=== PATIENT | female | born 1950 | race Caucasian/White ===

== ENCOUNTER → 2023-07-22 13:38 | Outpatient (REF) | payer OTHER, SELFPAY | LOC: RAD 13:38 | PROVIDERS: ATTENDING PHYSICIAN Internal Medicine Critical Care Medicine; FAMILY PHYSICIAN Family Medicine | DX: R91.1 Solitary pulmonary nodule (principal) | CPT/HCPCS: 71250 ==

== ENCOUNTER 2023-07-29 06:29 | Day surgery (SDC) | payer OTHER, SELFPAY ==
[2023-07-26 07:42] VITALS: BMI 30.5
[2023-07-26 09:12] LABS: Hematocrit 36.1 % (37.0-47.0); Hemoglobin 11.5 g/dL (12.0-16.0); Mean Corp Hgb Conc. 31.9 g/dL (33.0-37.0); Mean Corpuscular Hgb 29.5 pg (27.0-31.0); Mean Corpuscular Volume 92.6 fL (81.0-99.0); Mean Platelet Volume 10.4 fL (7.4-10.4); Platelet Count 338 10^3/uL (130-400); Red Cell Dist. Width 12.9 % (11.5-14.5); White Blood Cell Count 7.5 10^3/uL (4.8-10.8)
[2023-07-26 09:24] LABS: INR 0.98; PT 12.8 Sec (11.4-14.6)
[2023-07-26 09:25] LABS: APTT 25.7 Sec (23.4-35.0)
[2023-07-26 09:41] LABS: Blood Urea Nitrogen 24 mg/dl (7-17); Calcium 9.4 mg/dl (8.4-10.2); Carbon Dioxide 25 mmol/L (22-30); Chloride 105 mmol/L (98-107); Estimated Creatinine Clearance 69 ml/min; Glucose 101 mg/dl (70-99); Potassium 4.9 mmol/L (3.5-5.1); Sodium 140 mmol/L (135-145); eGFR > 60.00
[2023-07-29] VITALS (9 sets, daily range): BP systolic 110–148; BP diastolic 54–93; BMI 28.7
== END 2023-07-29 13:05 | disposition home or self-care (01) ==
LOC: GI 06:29
PROVIDERS: ATTENDING PHYSICIAN Internal Medicine Critical Care Medicine; FAMILY PHYSICIAN Family Medicine
DX: C34.32 Malignant neoplasm of lower lobe, left bronchus or lung (principal); R91.1 Solitary pulmonary nodule; R91.8 Other nonspecific abnormal finding of lung field
CPT/HCPCS: 31629; 31645; 31623; 31624; 31627; 31654; 88172; 88173; 88305; 36415; 71045; 76000; 80048; 85027; 85610; 85730; 88112; 88177; 88333; 88341; 88342; 93005; 94640; C1887

== ENCOUNTER → 2023-08-15 16:38 | Outpatient (REF) | payer OTHER, SELFPAY | LOC: MRI 3T 16:38 | PROVIDERS: ATTENDING PHYSICIAN Internal Medicine Critical Care Medicine; FAMILY PHYSICIAN Family Medicine | DX: C34.32 Malignant neoplasm of lower lobe, left bronchus or lung (principal) | CPT/HCPCS: 70553; A9575 ==

== ENCOUNTER → 2023-12-28 09:33 | Outpatient (REF) | payer OTHER, SELFPAY | LOC: RAD 09:33 | PROVIDERS: ATTENDING PHYSICIAN Radiology Radiation Oncology; FAMILY PHYSICIAN Family Medicine | DX: C34.32 Malignant neoplasm of lower lobe, left bronchus or lung (principal) | CPT/HCPCS: 71250 ==

== ENCOUNTER 2024-03-10 03:52 | Inpatient (IN) | payer OTHER, SELFPAY ==
[2024-03-10] VITALS (18 sets, daily range): BP systolic 98–156; BP diastolic 44–85; BMI 29.3; BMI 28.2
[2024-03-10 00:47] LABS: Troponin I < 0.012 ng/ml
[2024-03-10 00:49] LABS: % Basophils 0.2 % (0-2); % Eosinophils 0.8 % (0-6); % Immature Granulocytes 1.7 % (0-0.5); % Lymphocytes 5.1 % (20.5-51.1); % Monocytes 6.9 % (1.7-9.3); % Neutrophils 85.3 % (42.2-75.2); Absolute Eosinophils 0.1 10^3/uL (0-0.7); Absolute Immature Granulocytes 0.2 10^3/uL (0-0.05); Absolute Lymphocytes 0.7 10^3/uL (1.2-3.4); Hematocrit 34.9 % (37.0-47.0); Hemoglobin 11.6 g/dL (12.0-16.0); Mean Corp Hgb Conc. 33.2 g/dL (33.0-37.0); Mean Corpuscular Hgb 29.2 pg (27.0-31.0); Mean Corpuscular Volume 87.9 fL (81.0-99.0); Mean Platelet Volume 10.1 fL (7.4-10.4); Nucleated Red Blood Cells % 0 %; Platelet Count 296 10^3/uL (130-400); Red Blood Cell Count 3.97 10^6/uL (4.20-5.40)
[2024-03-10 00:51] LABS: ALT (SGPT) 602 U/L (0-35); AST (SGOT) 592 U/L (14-36); Albumin 3.8 g/dl (3.5-5.0); Alkaline Phosphatase 361 U/L (38-126); Blood Urea Nitrogen 25 mg/dl (7-17); Carbon Dioxide 22 mmol/L (22-30); Chloride 106 mmol/L (98-107); Estimated Creatinine Clearance 54 ml/min; Glucose 102 mg/dl (70-99); Sodium 141 mmol/L (135-145); Total Bilirubin 2.4 mg/dl (0.2-1.3); Total Protein 6.7 g/dl (6.3-8.2); eGFR > 60.00
--- NOTE | 2024-03-10 01:18 | ED.GENMED ---
History of Present Illness
General
Chief Complaint: Chest Pain
Source: patient
Exam Limitations: none
Time Seen by Provider: 03/10/24 01:09
History of Present Illness
History of Present Illness:
See MDM
Past History
Past History
ED Past Medical History: HTN and Psychiatric (Depression)
Social History
Tobacco: Smoker
Alcohol: Occasional
Drug: None
Personal: Single
Living: alone
Phy Exam
Physical Exam
Physical Exam:
See MDM
Scores
Heart Score for Chest Pain Patients
STEMI patient?: Not applicable
Course
Orders/Labs/Results
Orders:
Orders
03/10/24 00:06
Electrocardiogram (*1) Urgent
Reason for Study: Chest Pain
EKG- Treatment ONCE
03/10/24 00:14
Complete Blood Count/With Diff Urgent
Comprehensive Metabolic Panel Urgent
Lipase Urgent
Comment: ADD ON
Troponin I Urgent
03/10/24 00:58
Add On- LAB Urgent
Tests Added?: lipase
US Abdomen Complete/Upper Urgent
Comment:
Reason For Exam: acute epigastric pain, elevated LFT's
03/10/24 01:02
Lactic Acid Urgent
03/10/24 01:17
Ketorolac [Toradol] 30 mg IV NOW STA
03/10/24 02:41
Piperacillin/Tazo 3.375 Gram [Zosyn] 3.375 gram in 50 ml IV NOW
Abnormal Lab Results
03/10/24
00:14
WBC 14.0 H 10^3/uL
(4.8-10.8)
RBC 3.97 L 10^6/uL
(4.20-5.40)
Hgb 11.6 L g/dL
(12.0-16.0)
Hct 34.9 L %
(37.0-47.0)
Abs Immat Gran (auto) 0.2 H 10^3/uL
(0-0.05)
Absolute Neuts (auto) 12.0 H 10^3/uL
(1.4-6.5)
Absolute Lymphs (auto) 0.7 L 10^3/uL
(1.2-3.4)
Absolute Monos (auto) 1.0 H 10^3/uL
(0.1-0.6)
Immature Gran % 1.7 H %
(0-0.5)
Neutrophils % 85.3 H %
(42.2-75.2)
Lymphocytes % 5.1 L %
(20.5-51.1)
BUN 25 H mg/dl
(7-17)
Glucose 102 H mg/dl
(70-99)
Calcium 8.0 L mg/dl
(8.4-10.2)
Total Bilirubin 2.4 H mg/dl
(0.2-1.3)
AST 592 H* U/L
(14-36)
ALT 602 H* U/L
(0-35)
Alkaline Phosphatase 361 H U/L
(38-126)
Lipase > 4000 H* U/L
(23-300)
03/10/24 00:14
03/10/24 00:14
Vital Signs
Initial and Last Documented VS:
Initial Vital Signs
BP
117/44
03/10/24 00:05
Last Documented Vital Signs
Temp Pulse Resp BP Pulse Ox
97.6 F 66 20 98/58 99
03/10/24 00:06 03/10/24 02:30 03/10/24 02:30 03/10/24 01:00 03/10/24 02:30
MDM/Problems Addressed
Differential Diagnosis Includes:
HPI and MDM Narrative:
73-year-old female presenting for evaluation of of abdominal pain soon after eating. Blood work was done prior to my evaluation which shows significant elevation of LFTs. She states she has a family history of gallbladder disease. She initially
thought it could be heart related so she took aspirin. EKG performed by EMS showed no ischemic changes. Troponin negative. Will obtain ultrasound with concerns for acute calculus cholecystitis and possibly choledocholithiasis
Physical exam
General: Mildly uncomfortable
HEENT: protecting airway. Dry mucous membrane
Neck: appears supple
CV: No evidence of cyanosis
Resp: No accessory muscle use
Abd: Non-distended. Point tenderness to right upper quadrant
Extremities: No deformities
Neuro: alert
Psych: Normal affect
Skin: Intact
Problems Addressed including Acute and Chronic Conditions affecting care:
1. Right upper quadrant pain
Acuity: acute
Prognosis: stable
Details: LFTs elevated. Will obtain ultrasound to rule out acute calculus cholecystitis, choledocholithiasis or possibly gallstone pancreatitis
Updates
Ultrasound consistent with likely acute calculus cholecystitis but lipase is greater than 4000. Will start antibiotics admit as gallstone pancreatitis
Differential Diagnosis (but not limited to): Acute calculus cholecystitis, choledocholithiasis, acute gallstone pancreatitis
Testing considered: CT abdomen/pelvis
Drug therapy (if applicable): OTC meds, please see d/c instruction regarding Rx drugs
Amount and/or Complexity of Data Reviewed
Clinical info obtained from: Patient
External data reviewed: N/A
Labs I independently reviewed (but not limited to): Elevated LFTs
Radiology: Ultrasound report reviewed
Pulse Ox: not hypoxic
EKG independently reviewed: N/A
Hearing Therapy Teacher: N/A
Critical Care: N/A
Risk of Complication:
Social Determinants of health: Good social support
Discussed with other providers: Hospitalist
Escalation of Care includes Admit/Obs: Given the concern for gallstone pancreatitis and the LFT elevations, will start antibiotics and admit
Occasional wrong word or 'sound a like' substitutions may have occurred due to the inherent limitations of voice recognition software. Read the chart carefully and recognize, using context, where substitutions have occurred.
*Critical Care Note
Total Time (30-74mins, 75-104mins- exclusive of procedures): Not Applicable
ED Attending Note
-
Portions of this chart may have been created with voice recognition software.� Occasional wrong word or��sound alike� substitutions may have occurred due to the inherent limitations of voice recognition software.
Discharge Plan
Departure
Patient Disposition: Admit
Date of Disposition: 03/10/24
Time of Disposition: 02:44
Admit to: Med/Surg
Presentation/result/management discussed w/ accepting MD/DO: Hospitalist
Discharge Problem:
Pancreatitis, gallstone
Prescriptions:
No Action
alprazolam 0.25 MG tablet
0.25 mg PO HS
albuterol sulfate 1 PUFF HFA aerosol inhaler
2 puff inhalation R Q4HPRN PRN (Reason: shortness of breath or wheeze) Qty: 1 0RF
metoprolol succinate 100 mg Tablet Extended Release 24 Hr
150 mg PO HS
Trelegy Ellipta 100-62.5-25 mcg Blister With Device
1 inh INHALATION DAILY
multivitamin Tablet
1 tab PO HS
lisinopril 20 mg Tablet
20 mg PO HS
aspirin 81 mg Tablet,Delayed Release (Dr/Ec)
81 mg PO HS
ibuprofen [Advil] 200 mg Tablet
400 mg PO Q6H PRN (Reason: headache)
gabapentin 100 mg Capsule
100 - 200 mg PO HS
cholecalciferol (vitamin D3) [Vitamin D3] 25 mcg (1,000 unit) Tablet
25 mcg PO HS
mecobalamin (vitamin B12) 1,000 mcg Tablet,Chewable
1,000 mcg PO HS
imipramine HCl 50 mg Tablet
200 mg PO HS
Referrals:
Penny Longoria DO [Family Provider] -
Interventions
Interventions:
*Risk Screen - Suicide Last Done: 03/10/24 00:08
*General Assessment Last Done: 03/10/24 00:08
*Neglect/Abuse Screening Last Done: 03/10/24 00:08
*ED COVID-19 Vaccine History Last Done: 03/10/24 00:08
ED- Cardiac Assessment Last Done: 03/10/24 00:15
Discharge Date and Time
Print Language: CZECH
[2024-03-10 01:21] LABS: Lactic Acid 1.6 mmol/L (0.7-2.0)
[2024-03-10 01:30] LABS: Lipase > 4000 U/L (23-300)
[2024-03-10] MEDS: TORADOL 30 MG IV (01:34)
[2024-03-10] MEDS: ZOSYN 50 IV ×4 (02:47→22:07)
--- NOTE | 2024-03-10 03:34 | HPS.HSE ---
Family Physician
-
Family Physician: Penny Longoria DO
Chief Complaint
-
Abd Pain
History of Present Illness
Patient is a 73y F with PMH significant for hypertension, COPD and lung cancer who presents to ED complaining of abdominal pain. Patient states that she had upper abdominal pain 2 nights ago. This kept her up most of the evening before
eventually resolving. This evening after dinner, the discomfort returned. Patient describes a belt like / band like pain across the upper abdomen and into the back. She notes that pain this evening became progressively more intense and she
presented to the ED for further evaluation. She notes numbness sensation in the jaw. She denies any N/V, no fevers / chills. She denies any prior history of similar symptoms before a few nights ago.
Medical History
Past Medical History
Past Medical History: Reports Other
Additional Past Medical History:
Hypertension
Lung Cancer s/p XRT
COPD
Anxiety / Depression
Past Surgical History: Reports Other
Additional Past Surgical History:
T&A
Left TKA
Bronch / Biopsy
Social History
Tobacco: Smoker (Quit smoking 10 years ago. > 40 pack years total use.)
Alcohol: None
Drug: None
Family History
Family History: Not pertinent
Allergies / Home Medications
Allergies reflects when Allergies were last updated in [facility].
Home Medications with original date entered in [facility]
Allergy/Medication List:
Allergies
Allergy/AdvReac Type Severity Reaction Status Date / Time
gluten Allergy Nausea Verified 07/29/23 09:03
meperidine HCl [From Demerol] Allergy Anaphylaxis Verified 07/29/23 09:03
prochlorperazine edisylate Allergy Anaphylaxis Verified 07/29/23 09:03
[From Compazine]
prochlorperazine maleate Allergy Anaphylaxis Verified 07/29/23 09:03
[From Compazine]
nuts Allergy Anaphylaxis Uncoded 07/29/23 09:03
Home Medications
alprazolam 0.25 mg tablet 0.25 mg PO HS 04/12/13
albuterol sulfate 90 mcg/actuation aerosol inhaler 2 puff inhalation R Q4HPRN PRN shortness of breath or wheeze ##1 04/14/13
aspirin 81 mg tablet,delayed release 81 mg PO HS 07/24/23
cholecalciferol (vitamin D3) 25 mcg (1,000 unit) tablet (Vitamin D3) 25 mcg PO HS 07/24/23
fluticasone fur. 100 mcg-umeclid 62.5 mcg-vilant 25 mcg inhalat.powder (Trelegy Ellipta) 1 inh inhalation DAILY 07/24/23
ibuprofen 200 mg tablet (Advil) 400 mg PO Q6H PRN headache 07/24/23
imipramine HCl 50 mg tablet 200 mg PO HS 07/24/23
lisinopril 20 mg tablet 20 mg PO HS 07/24/23
mecobalamin (vitamin B12) 1,000 mcg chewable tablet 1,000 mcg PO HS 07/24/23
metoprolol succinate 100 mg tablet,extended release 24 hr 150 mg PO HS 07/24/23
multivitamin 1 tab PO HS 07/24/23
Review of Systems
-
History Source: Patient
A 12 point ROS was completed and negative except as noted: Yes
Constitutional: Denies Fever or Chills
Respiratory: Denies Cough or Trouble Breathing
Cardiac: Denies Chest Pain or Palpitations
Abdomen/GI: Reports Abdominal Pain; Denies Nausea, Vomiting or Diarrhea
: Denies Dysuria or Frequency
Neurological: Denies Dizzy or Headache
Psych: Denies Depression or Anxiety
Physical Exam
Vital Signs
Vital Signs
Temp Pulse Resp BP Pulse Ox
98.8 F 66 18 113/63 96
03/10/24 03:29 03/10/24 03:29 03/10/24 03:29 03/10/24 03:29 03/10/24 03:29
Physical Exam
General: Other (73y F in no acute distress.)
HEENT: Moist mucous membranes and PERRLA
Respiratory: Clear; No Wheezes, Rales or Rhonchi
Cardiac: S1/S2 and Regular Rhythm; No Murmur
GI: Soft, Non Distended, Normal Bowel Sounds and Other (Pos RUQ tenderness without rebound / guarding.)
Musculoskeletal: No Clubbing, No Cyanosis and No Edema
Neuro: AO x 3
Laboratory Results
-
03/10/24 00:14
03/10/24 00:14
Laboratory Results
Lactic Acid 1.6 mmol/L (0.7-2.0) 03/10/24 01:02
Total Bilirubin 2.4 mg/dl (0.2-1.3) H 03/10/24 00:14
AST 592 U/L (14-36) H* 03/10/24 00:14
ALT 602 U/L (0-35) H* 03/10/24 00:14
Alkaline Phosphatase 361 U/L (38-126) H 03/10/24 00:14
Troponin I < 0.012 ng/ml 03/10/24 00:14
Lipase > 4000 U/L (23-300) H* 03/10/24 00:14
Impression/Plan
-
A/P: Patient is a 73y F with PMH significant for hypertension, COPD and lung cancer s/p XRT who presents to ED complaining of abdominal pain.
Acute Calculous Cholecystitis
Possible Gallstone Pancreatitis
- Admit for further evaluation and treatment.
- RUQ pain with US showing gallbladder filled with stones and mild wall thickening.
- Leukocytosis without fever. No N/V.
- IV abx. NPO, IVF, pain control, etc.
- Surgery and GI evaluations for additional recommendations.
Benign Hypertension
- Hold lisinopril for now.
- Continue Toprol with holding parameters.
COPD without Acute Exacerbation
Lung Cancer s/p XRT
- No wheezing or SOB.
- Completed treatment for very early stage lung cancer (XRT x 5 sessions).
- Continue usual inhaler regimen.
- Nebs PRN.
Anxiety / Depression
- Stable. Continue home medications.
DVT Prophylaxis: SCDs
Code Status: Full
[2024-03-10] MEDS: NSS 1000 IV ×3 (05:06→21:34)
[2024-03-10] MEDS: ZOSYN IV (05:30)
[2024-03-10 06:36] LABS: Hemoglobin 10.2 g/dL (12.0-16.0); Mean Corp Hgb Conc. 30.9 g/dL (33.0-37.0); Mean Corpuscular Hgb 27.8 pg (27.0-31.0); Mean Corpuscular Volume 89.9 fL (81.0-99.0); Mean Platelet Volume 10.3 fL (7.4-10.4); Platelet Count 288 10^3/uL (130-400); Red Blood Cell Count 3.67 10^6/uL (4.20-5.40); Red Cell Dist. Width 14.4 % (11.5-14.5); White Blood Cell Count 11.7 10^3/uL (4.8-10.8)
[2024-03-10 07:09] LABS: ALT (SGPT) 563 U/L (0-35); AST (SGOT) 492 U/L (14-36); Albumin 3.3 g/dl (3.5-5.0); Alkaline Phosphatase 360 U/L (38-126); Blood Urea Nitrogen 32 mg/dl (7-17); Calcium 7.9 mg/dl (8.4-10.2); Carbon Dioxide 26 mmol/L (22-30); Chloride 104 mmol/L (98-107); Direct Bilirubin 1.9 mg/dl (0.0-0.4); Estimated Creatinine Clearance 45 ml/min; Glucose 114 mg/dl (70-99); Potassium 4.8 mmol/L (3.5-5.1); Sodium 139 mmol/L (135-145); Total Bilirubin 2.3 mg/dl (0.2-1.3)
[2024-03-10] MEDS: SPIRIVA RESPIMAT 2.5 MCG 2 PUFF INH (07:32)
[2024-03-10] MEDS: SYMBICORT 80/4.5 MCG INHALER 2 PUFF INH ×2 (07:33→20:36)
--- NOTE | 2024-03-10 08:35 | W.PN.HOSP.TC ---
Addendum entered and electronically signed by Shay Barrera MD 03/10/24 14:00:
acute gallstone pancreatitis
-ivf
-iv analgesics
-mrcp
-follow lfts
-gi and surgery consult
--eventually will require cholecystectomy
-npo aftermidnight if ercp or is taken to the or with suregry
valentino
-hold lisinopril
-ivf
-avoid nephrotoxins and hypotension
-follow renal functin
Original Note:
Today's Communication/Plan
-
Continue Zosyn.
Continue metoprolol.
Hold lisinopril.
Continue IV fluids, Zofran as needed, optimal pain management.
Advance diet to clear liquids for now but n.p.o. from midnight.
Assessment / Plan
Assessment / Plan
[place]-74-sdjx-old female with PMHx significant for hypertension, adenocarcinoma of the lung stage I s/p radiation therapy, COPD chronic and stable, HLD, anxiety and depression presented to the hospital for evaluation of abdominal pain and is
diagnosed with acute pancreatitis and acute calculus cholecystitis.
Plan-
Acute pancreatitis-
Lipase levels greater than 4000.
Secondary to acute calculus cholecystitis.
Clear liquids for now, n.p.o. from midnight for procedures tomorrow.
Optimal pain control-Currently patient is on Dilaudid and acetaminophen as needed.
Continue IV fluids, Zofran for nausea.
Acute calculus cholecystitis-
Elevated AST, ALT, ALP. Elevated total bilirubin send direct bilirubin.
Trend liver function.
Right upper quadrant pain with ultrasound of the gallbladder evidence at for multiple stones and gallbladder wall thickening.
GI and surgery consulted, appreciate input.
GI recommended MRCP to evaluate for choledocholithiasis..
Surgery recommended clear liquids for now and n.p.o. from midnight for procedures tomorrow.
Appreciate GI and surgery input.s.
Continue IV Zosyn 4 times daily.
VALENTINO-
Serum creatinine elevated to 1.2, no VALENTINO upon initial hospital admission
Suspect secondary to acute calculus cholecystitis versus Zosyn.
Hold lisinopril.
Continue to trend renal function.
Monitor for fluid overload.
Hypertension-
Continue home dose of metoprolol 150 Mg
Lisinopril on hold currently.
Patient is bradycardic when I saw her on bedside.
Suspect reflex bradycardia secondary to high-dose of metoprolol.
Chronic stable COPD-
On Spiriva and Symbicort at home.
Continue home medications.
No acute exacerbation during this hospital admission as of now.
Lung adenocarcinoma stage I-status post radiation therapy.
Anxiety/depression-
Continue Xanax and Tofranil.
DVT prophylaxis-SCDs.
CODE STATUS-full code.
Anticipated Discharge: > 48 hours
Subjective/Interval History
-
Date of Service: March 10, 2024
Patient presented to the hospital for a sharp and shooting bandlike abdominal pain below her ribs bilaterally radiating into her back which is 9/10 in intensity upon admission. Currently patient reports her pain to be nearly 0/10.
Patient does not report to have any nausea.
Her dizziness upon admission almost resolved.
Objective Data
-
Labs:
Laboratory Results
03/10/24 03/10/24
00:14 04:59
WBC 14.0 H 11.7 H
Hgb 11.6 L 10.2 L
Hct 34.9 L 33.0 L
Plt Count 296 288
Sodium 141 139
Potassium 5.0 4.8
Chloride 106 104
Carbon Dioxide 22 26
BUN 25 H 32 H
Creatinine 0.9 1.1 H
Glucose 102 H 114 H
Calcium 8.0 L 7.9 L
Total Bilirubin 2.4 H 2.3 H
AST 592 H* 492 H
ALT 602 H* 563 H*
Alkaline Phosphatase 361 H 360 H
Vital Signs:
Vital Signs
Temp Pulse Resp BP Pulse Ox
98.8 F 60 16 132/67 98
03/10/24 03:29 03/10/24 07:47 03/10/24 07:47 03/10/24 07:00 03/10/24 05:00
Review of Systems
-
History Source: Patient
Constitutional: Denies Fever, Weight Loss, No Appetite, Fatigue or Chills
EENT: Reports No Symptoms Reported
Respiratory: Denies Cough, Trouble Breathing or Wheezing
Cardiac: Denies Chest Pain, Palpitations, Syncope, PND or Orthopnea
Abdomen/GI: Reports Abdominal Pain and Nausea (Resolved.); Denies Constipated, Bloody Stools, Black Stools or Anorexia
Genitourinary: Reports No Symptoms
Musculoskeletal: Reports No Symptoms
Neuro: Reports Dizzy and Weakness
Endocrine: Reports No Symptoms
Hematologic / Lymphatic: Reports No Symptoms
Allergy / Immunology: Reports No Symptoms
Physical Exam
-
General: No Apparent Distress and Comfortable
HEENT: Moist Mucous Membranes
Respiratory: Clear to Auscultation; Negative Wheezes, Rales or Rhonchi
Cardiac: Regular Rhythm and S1/S2; Negative Murmur, Rub or Gallop
GI: Soft, Nontender, Nondistended, Normal Bowel Sounds and Other (Inspection of the abdomen-no superficial skin changes or color changes noted.)
Genito-urinary: No Costovertebral Tender
Musculoskeletal: No Edema
Neuro: Awake, No Motor Deficits and DTR's Intact & Symmetrica
Psych: Calm
Data Reviewed
-
Ultrasound: Image personally visualized and interpreted, Report Reviewed by me and Discussed with Physician
Medical Tests (Nuc Med, Echo etc): Image personally visualized and interpreted, Report Reviewed by me and Discussed with Physician
Labs: Labs Reviewed by me and Discussed with Physician
--- NOTE | 2024-03-10 09:32 | CON.GI ---
Addendum entered and electronically signed by Balaji Laughlin MD 03/10/24 12:20:
Patient seen and examined, agree with nurse practitioner note. Patient presents with worsening history of epigastric pain which became more severe yesterday. She states that for the past several weeks has been having pain, usually after eating
about an hour, in the epigastric with radiation to the back. This became much worse which prompted to come to the emergency room where she was found to have lipase greater than 4000 and elevated LFTs. She then states that she has been feeling much
better, with no recurrent pain, or nausea. She denies any fevers or chills. She is never had pain like this before. She denies any chest pain or shortness of breath, melena or hematochezia has otherwise been doing well. On exam she has minimal
epigastric tenderness now, no rebound. Her LFTs are much improved today, and ultrasound showed gallstones though no biliary duct dilation. At this point likely gallstone pancreatitis, with likely passed CBD stone given prompt resolution in
symptoms and markedly improved LFTs. Will continue IV fluids, supportive care, await MRI results. Surgery has been consulted for eventual cholecystectomy.
Original Note:
Consultation
-
Date/Time Consultation Requested: 03/10/24416
Date/Time Consultation Performed: 03/10/24931
Requesting Provider: Dr. Dan
Performing Provider: Dr. Laughlin/KAPIL Sawyer
Reason for Consultation: acute calculus cholecystitis
Medical History
Chief Complaint / HPI
Chief Complaint: chest pain
History of Present Illness:
73-year-old female with past medical history of hypertension, asthma, COPD, pulmonary nodule, colon polyps, lung cancer left lower lobe status post radiation, anxiety and depression presents to the emergency room with epigastric pain with radiation
through the back. The patient states that she has had intermittent symptoms like this for the past couple months. The patient states that on Saturday she started with acute onset of epigastric discomfort that was like a squeezing sensation that
wraps around to her back. This lasted for couple hours but then subsided and came back with 'a vengeance', on Saturday. She states she had pastry mixer colored stools. No bilirubinuria. The patient denies any fevers, chills, nausea, vomiting, melena,
hematochezia, dysphagia or odynophasia. No early satiety or unintentional weight loss. Her pain is improved now that she has had pain medication.
Past Medical History
Past Medical History: Asthma, COPD, HTN and Other (Thyroid nodule, colon polyps, UTI, celiac, depression, anxiety,)
Past Surgical History: Tonsilectomy and Other (Left knee replacement, bronchoscopy/lung biopsy)
Social History
Tobacco: Former Smoker
Alcohol: None
Drug: None
Family History
Family History: Other (Father history colon cancer)
Allergies / Home Medications
Allergy/AdvReac Type Severity Reaction Status Date / Time
gluten Allergy Nausea Verified 07/29/23 09:03
meperidine HCl [From Demerol] Allergy Anaphylaxis Verified 07/29/23 09:03
prochlorperazine edisylate Allergy Anaphylaxis Verified 07/29/23 09:03
[From Compazine]
prochlorperazine maleate Allergy Anaphylaxis Verified 07/29/23 09:03
[From Compazine]
nuts Allergy Anaphylaxis Uncoded 07/29/23 09:03
�Medication �Instructions �Recorded
alprazolam 0.25 mg tablet 0.25 mg PO HS 04/12/13
albuterol sulfate 90 mcg/actuation 2 puff inhalation R Q4HPRN PRN 04/14/13
aerosol inhaler shortness of breath or wheeze ##1
aspirin 81 mg tablet,delayed 81 mg PO HS 07/24/23
release
cholecalciferol (vitamin D3) 25 25 mcg PO HS 07/24/23
mcg (1,000 unit) tablet (Vitamin
D3)
fluticasone fur. 100 mcg-umeclid 1 inh inhalation R DAILY 07/24/23
62.5 mcg-vilant 25 mcg
inhalat.powder (Trelegy Ellipta)
imipramine HCl 50 mg tablet 200 mg PO QPM 07/24/23
lisinopril 20 mg tablet 20 mg PO HS 07/24/23
mecobalamin (vitamin B12) 1,000 1,000 mcg PO HS 07/24/23
mcg chewable tablet
metoprolol succinate 100 mg 150 mg PO HS 07/24/23
tablet,extended release 24 hr
atorvastatin 20 mg tablet 20 mg PO DAILY 03/10/24
folic acid 1 mg tablet 1 mg PO DAILY 03/10/24
omeprazole 20 mg capsule,delayed 20 mg PO DAILY 03/10/24
release
therapeutic multivitamin 1 tab PO DAILY 03/10/24
Review of Systems
-
All other systems: A 12 pt ROS was Negative except as stated above in HPI
Vital Signs
Temp Pulse Resp BP Pulse Ox
98.8 F 56 11 136/63 98
03/10/24 03:29 03/10/24 09:02 03/10/24 09:02 03/10/24 09:02 03/10/24 05:00
Physical Exam
Exam
General: No Apparent Distress
HEENT: Anicteric
Respiratory: Clear
Cardiac: Regular Rhythm
GI: Soft, Non Distended, Normal Bowel Sounds and Tender (epigastric/RUQ)
Skin: Warm and Dry
Neuro: AO x 3
Psych: Calm
Results
WBC 11.7 10^3/uL (4.8-10.8) H 03/10/24 04:59
Hgb 10.2 g/dL (12.0-16.0) L 03/10/24 04:59
Hct 33.0 % (37.0-47.0) L 03/10/24 04:59
MCV 89.9 fL (81.0-99.0) 03/10/24 04:59
Plt Count 288 10^3/uL (130-400) 03/10/24 04:59
Absolute Neuts (auto) 12.0 10^3/uL (1.4-6.5) H 03/10/24 00:14
Sodium 139 mmol/L (135-145) 12 04:59
Potassium 4.8 mmol/L (3.5-5.1) 03/10/24 04:59
Chloride 104 mmol/L (98-107) 03/10/24 04:59
Carbon Dioxide 26 mmol/L (22-30) 12 04:59
BUN 32 mg/dl (7-17) H 03/10/24 04:59
Creatinine 1.1 mg/dL (0.6-1.0) H 03/10/24 04:59
Calcium 7.9 mg/dl (8.4-10.2) L 03/10/24 04:59
Total Bilirubin 2.3 mg/dl (0.2-1.3) H 03/10/24 04:59
AST 492 U/L (14-36) H 03/10/24 04:59
ALT 563 U/L (0-35) H* 12 04:59
Alkaline Phosphatase 360 U/L (38-126) H 03/10/24 04:59
Lipase > 4000 U/L (23-300) H* 03/10/24 00:14
Diagnostic Image Results:
US Abd: IMPRESSION:
Numerous shadowing gallstones within the gallbladder. Gallbladder wall is slightly thickened. No evidence for pericholecystic edema. Negative sonographic Guerra's sign, but the patient has reportedly received pain medication.
No evidence for biliary ductal dilation.
Prior GI Procedures:
EGD:
Colonoscopy:
Assessment / Plan
-
73-year-old female with past medical history of hypertension, asthma, COPD, pulmonary nodule, colon polyps, lung cancer left lower lobe status post radiation, anxiety and depression presents to the emergency room with epigastric pain with radiation
through the back. Found to have gallstone pancreatitis. US Abd with numerous shadowing gallstones within the gallbladder. Gallbladder wall is slightly thickened. No evidence for pericholecystic edema. Negative sonographic Guerra's sign, but the
patient has reportedly received pain medication. No evidence for biliary ductal dilation. Patient does have total bilirubin of 2.3 with direct bili of 1.9, AST 492, ALT 563 and Alk Phos 360. Lipase > 4000.
Impression:
Gallstone pancreatitis
Transaminitis
Plan:
-IVF, currently NSS at 125 cc/hr
-Analgesia per IM
-Incentive Spirometer
-MRI Abd with MRCP
-Surg consult pending
-CBC, CMP, direct bilirubin in am
-Further recommendations to be forthcoming
-
-
Thank you for consultation and allowing me to participate in the patient's care. Please call the personal injury law specialist GI physician during the after hours with any questions or concerns.
--- NOTE | 2024-03-10 11:30 | CON.GS ---
Medical History
-
Chief Complaint: Abdominal pain
History of Present Illness:
Patient is a 73 yo F with a PMH of anxiety/depression, GERD, HTN, HLD, COPD (no home O2), stage I lung cancer s/p XRT, and s/p L TKA. Ms. Saunders states that approximately 2 days ago she developed upper abdominal discomfort which resolved within
hours. Yesterday evening she developed recurrent severe epigastric and back pain. The persistence and severity of her discomfort prompted presentation to the ED. Currently she states that she has improved, but continues to have some mild
discomfort with deep palpation. She reports intermittent episodes of epigastric and RUQ abdominal discomfort over the past several months. These episodes were minor and brief resulting in no further evaluation. No nausea or vomiting. No fevers,
subjective chills overnight. He denies any jaundice or tea colored urine, she does report pale stools. Of note, family history notable for 2 daughters who had their gallbladder removed.
Past Medical History
Past Medical History: Cancer (Lung, stage I s/p XRT), COPD, GERD, HTN, Hypercholesterolemia and Psychiatric (anxiety/depression)
Past Surgical History: Orthopedic (L TKA)
Social History
Tobacco: Former Smoker
Alcohol: None
Drug: None
Family History
Family History: Reviewed & Not Pertinent
Allergies / Home Medications
Allergy/AdvReac Type Severity Reaction Status Date / Time
gluten Allergy Nausea Verified 07/29/23 09:03
meperidine HCl [From Demerol] Allergy Anaphylaxis Verified 07/29/23 09:03
prochlorperazine edisylate Allergy Anaphylaxis Verified 07/29/23 09:03
[From Compazine]
prochlorperazine maleate Allergy Anaphylaxis Verified 07/29/23 09:03
[From Compazine]
nuts Allergy Anaphylaxis Uncoded 07/29/23 09:03
�Medication �Instructions �Recorded �Confirmed �Type
alprazolam 0.25 mg tablet 0.25 mg PO HS 04/12/13 03/10/24 History
albuterol sulfate 90 mcg/actuation 2 puff inhalation R Q4HPRN PRN 04/14/13 03/10/24 Rx
aerosol inhaler shortness of breath or wheeze ##1
aspirin 81 mg tablet,delayed 81 mg PO HS 07/24/23 03/10/24 History
release
cholecalciferol (vitamin D3) 25 25 mcg PO HS 07/24/23 03/10/24 History
mcg (1,000 unit) tablet (Vitamin
D3)
fluticasone fur. 100 mcg-umeclid 1 inh inhalation R DAILY 07/24/23 03/10/24 History
62.5 mcg-vilant 25 mcg
inhalat.powder (Trelegy Ellipta)
imipramine HCl 50 mg tablet 200 mg PO QPM 07/24/23 03/10/24 History
lisinopril 20 mg tablet 20 mg PO HS 07/24/23 03/10/24 History
mecobalamin (vitamin B12) 1,000 1,000 mcg PO HS 07/24/23 03/10/24 History
mcg chewable tablet
metoprolol succinate 100 mg 150 mg PO HS 07/24/23 03/10/24 History
tablet,extended release 24 hr
atorvastatin 20 mg tablet 20 mg PO DAILY 03/10/24 03/10/24 History
folic acid 1 mg tablet 1 mg PO DAILY 03/10/24 03/10/24 History
omeprazole 20 mg capsule,delayed 20 mg PO DAILY 03/10/24 03/10/24 History
release
therapeutic multivitamin 1 tab PO DAILY 03/10/24 03/10/24 History
Review of Systems
-
A 10 point review of systems was completed, and was negative except as per HPI.
Physical Exam
Vital Signs
Temp Pulse Resp BP Pulse Ox
98.8 F 57 10 134/72 97
03/10/24 03:29 03/10/24 11:00 03/10/24 11:00 03/10/24 11:00 03/10/24 10:01
03/09/24 03/10/24 12
06:59 06:59 06:59
Actual Weight 77.5 kg
Body Mass Index (BMI) 29.3
Lab Results
03/10/24 04:59
03/10/24 04:59
WBC 11.7 10^3/uL (4.8-10.8) H 03/10/24 04:59
Hgb 10.2 g/dL (12.0-16.0) L 03/10/24 04:59
Hct 33.0 % (37.0-47.0) L 03/10/24 04:59
Plt Count 288 10^3/uL (130-400) 03/10/24 04:59
Abs Immat Gran (auto) 0.2 10^3/uL (0-0.05) H 03/10/24 00:14
Neutrophils % 85.3 % (42.2-75.2) H 03/10/24 00:14
Physical Exam
General: Well Developed, Well Nourished and No Apparent Distress
HEENT: Normocephalic and Anicteric
Respiratory: Non Labored Respirations
Cardiac: Regular Rhythm
GI: Soft, Non Distended, Tender (epigastrium, worse with deep inspiration) and Other (Non-peritoneal)
Musculoskeletal: No Edema
Skin: Warm and Dry
Neuro: Nonfocal/Grossly Intact
Data Reviewed
-
Ultrasound: Image Personally Visualized and interpreted
Labs: Labs Reviewed by me
Assessment / Plan
-
Patient is a 73 yo F p/w gallstone pancreatitis
Work-up including labs and ultrasound imaging were reviewed. The natural history and pathophysiology of biliary and stone disease was reviewed. Anatomy was reviewed utilizing pictorial drawings. Role of cholecystectomy in preventing future
episodes of biliary colic, cholecystitis, and gallstone pancreatitis was reviewed. Given her persistent discomfort recommend medical management for her pancreatitis. Timing of cholecystectomy TBD based on labs and resolution of pain. GI consult
noted; tentative plan for MRI to rule out choledocholithiasis given elevated bilirubin and LFTs. All questions answered.
-- OK for clears following MRI, NPO PM for possible procedures tomorrow
-- IVF given pancreatitis
-- Pain control: Tylenol and IV Dilaudid PRN
-- Abx: currently on Zosyn
-- Repeat labs in AM
[2024-03-10] MEDS: TOFRANIL 200 MG PO (22:06)
[2024-03-10] MEDS: XANAX 0.25 MG PO (22:07)
[2024-03-10] MEDS: TOPROL XL 150 MG PO (22:08)
[2024-03-11] VITALS (11 sets, daily range): BP systolic 118–142; BP diastolic 54–69
--- NOTE | 2024-03-11 02:24 | PTCARENOTE ---
Recieved patient in bed upon change of shift. AAOx3. Pleasant and cooeprative with care. No c/o pain ro discomfort. Call [facility]worth within reach.
[2024-03-11] MEDS: ZOSYN 50 IV ×4 (04:08→21:57)
[2024-03-11] MEDS: NSS 1000 IV (08:06)
[2024-03-11] MEDS: SPIRIVA RESPIMAT 2.5 MCG 2 PUFF INH (08:23)
[2024-03-11] MEDS: SYMBICORT 80/4.5 MCG INHALER 2 PUFF INH ×2 (08:23→20:12)
--- NOTE | 2024-03-11 08:23 | W.PN.GI.CBS2 ---
Today's Communication / Plan
-
Please see assessment and plan for details.
Assessment / Plan
-
1. Abdominal pain: Consistent with gallstone pancreatitis, though prompt resolution of symptoms and improved numbers, likely spontaneously passed CBD stone, now with no significant pain or tenderness now. This point will await morning labs and
MRI, which by my review does not show any obvious CBD stone. Surgery is following for cholecystectomy, possibly today pending MRI results. If positive for CBD stone will make plans for ERCP, otherwise will defer to surgery. It is okay to advance
diet from GI standpoint once procedures are done given much improved pancreatitis symptoms
Subjective
Subjective
Date of Service: March 11, 2024
Patient feeling well, no significant abdominal pain, nausea or vomiting overnight. Tolerated clears without difficulty.
Objective
Data Reviewed
Laboratory Data:
Laboratory Results
Total Bilirubin 2.3 mg/dl (0.2-1.3) H 03/10/24 04:59
AST 492 U/L (14-36) H 03/10/24 04:59
ALT 563 U/L (0-35) H* 03/10/24 04:59
Alkaline Phosphatase 360 U/L (38-126) H 03/10/24 04:59
Lipase > 4000 U/L (23-300) H* 03/10/24 00:14
Vital Signs and I&O:
Vital Signs
Temp Pulse Resp BP Pulse Ox
98.8 F 74 18 128/54 98
03/11/24 03:42 03/11/24 03:42 03/11/24 03:42 03/11/24 03:42 03/11/24 03:42
I&O
03/10/24 03/11/24 12
06:59 06:59 06:59
Intake Total 3115 / 3115
Balance 3115 / 3115
Physical Exam
Physical Exam
General: NAD
Abdomen: normal bowel sounds, soft, no tenderness, no masses or bruits, no ascites
[2024-03-11 08:59] LABS: % Basophils 0.3 % (0-2); % Immature Granulocytes 0.6 % (0-0.5); % Lymphocytes 13.9 % (20.5-51.1); % Monocytes 8.2 % (1.7-9.3); Absolute Eosinophils 0.1 10^3/uL (0-0.7); Absolute Lymphocytes 0.9 10^3/uL (1.2-3.4); Absolute Monocytes 0.5 10^3/uL (0.1-0.6); Absolute Neutrophils 4.9 10^3/uL (1.4-6.5); Hemoglobin 9.1 g/dL (12.0-16.0); Mean Corp Hgb Conc. 31.4 g/dL (33.0-37.0); Mean Corpuscular Volume 89.2 fL (81.0-99.0); Mean Platelet Volume 10.3 fL (7.4-10.4); Nucleated Red Blood Cells % 0 %; Platelet Count 239 10^3/uL (130-400); Red Blood Cell Count 3.25 10^6/uL (4.20-5.40); Red Cell Dist. Width 14.5 % (11.5-14.5); White Blood Cell Count 6.6 10^3/uL (4.8-10.8)
[2024-03-11 09:32] LABS: ALT (SGPT) 339 U/L (0-35); AST (SGOT) 167 U/L (14-36); Albumin 3.2 g/dl (3.5-5.0); Alkaline Phosphatase 315 U/L (38-126); Blood Urea Nitrogen 23 mg/dl (7-17); Calcium 7.9 mg/dl (8.4-10.2); Carbon Dioxide 21 mmol/L (22-30); Chloride 109 mmol/L (98-107); Direct Bilirubin 0.3 mg/dl (0.0-0.4); Estimated Creatinine Clearance 50 ml/min; Glucose 74 mg/dl (70-99); Potassium 4.4 mmol/L (3.5-5.1); Sodium 140 mmol/L (135-145); Total Bilirubin 0.5 mg/dl (0.2-1.3); Total Protein 5.8 g/dl (6.3-8.2); eGFR 58.75
--- NOTE | 2024-03-11 09:39 | W.PN.UPDATE ---
Update Note
Progress Note Update
Pt seen and evaluated at bedside. No complaints. Exam benign. Added on to today's OR schedule for rCCY.
--- NOTE | 2024-03-11 11:33 | OR.RPT ---
Operative Report
Operative Report
Primary Surgeon: Harjinder
Assisting: Ad SAEZ
Pre-op Diagnosis: Biliary pancreatitis
Post-op Diagnosis: Chronic cholecystitis
Procedure Performed: Robot assisted laparoscopic cholecystectomy
Anesthesia Type: GETA
Specimen / Cultures: Gallbladder
Estimated Blood Loss: 25cc
Complications: None immediate
Operative Findings: Softly distended gallbladder with dense omental adhesions and fibrotic thickened wall
Date of Surgery:� 03/11/24
Indications: This 73F developed biliary pancreatitis. MRCP without signs of choledocholithiasis. Laparoscopic cholecystectomy with robotic assist was elected.
Description of procedure: The patient was placed on the operating table in the supine position. General anesthesia was induced. A time-out was completed verifying correct patient, procedure, site, positioning, and special equipment prior to
beginning this procedure. An orogastric tube was placed. The abdomen was prepped and draped in the usual sterile fashion. A stab incision was made in left upper quadrant and the Veress needle was inserted. Proper position was confirmed by aspiration
and saline meniscus test. The abdomen was insufflated with carbon dioxide to a pressure of 12mmHg. The patient tolerated insufflation well.
A 8mm trocar was then inserted above the umbilicus. The laparoscope was inserted and the abdomen inspected. No injuries from initial trocar placement or Veress needle insertion were noted. Additional 8mm trocars were then inserted in the following
locations: two in the right lower quadrant and to the left of the umbilicus and just above. The abdomen was inspected and no abnormalities were found. The table was placed in the reverse Trendelenburg position with the right side up. The dome of the
gallbladder was grasped with an atraumatic grasper and retracted over the dome of the liver. Dense omental adhesions were carefully teased down with gently blunt sweeps and judicious hook cautery. The infundibulum was then grasped with an atraumatic
grasper and retracted toward the right lower quadrant. This maneuver exposed Calot�s triangle. The peritoneum overlying the gallbladder infundibulum was then incised and the cystic duct and cystic artery identified and circumferentially dissected so
that a clear view of the liver was achieved through a window between the cystic duct an cystic artery. At this time, the only two structures going into the gallbladder were the cystic artery and cystic duct.
The cystic duct was then doubly clipped and divided. The cystic artery was controlled with bipolar and divided. The gallbladder was then dissected from its peritoneal attachments by electrocautery. The posterior plane was fibrotic. The gallbladder
was removed using an endoscopic retrieval bag placed through the umbilical port. The gallbladder was passed off the table as a specimen. The gallbladder fossa was closely inspected. There was no evidence of bleeding from the gallbladder fossa or
cystic artery or leakage of the bile from the cystic duct stump. The umbilical trocar site was closed at the fascial level with 2-0 PDS. Secondary trocars were removed under direct vision and noted to be hemostatic. The abdomen was allowed to
collapse. The skin was closed with subcuticular sutures of 4-0 monocryl and topical skin adhesive. The orogastric tube was removed.
The patient tolerated the procedure well and was taken to the postanesthesia care unit in stable condition.
--- NOTE | 2024-03-11 12:19 | SUR.PHASEI ---
Lunch relief Pt obstructing at times arouses easily encouraged to deep breath harvey well, oriented x 3 by RN
--- NOTE | 2024-03-11 12:27 | W.PN.HOSP.TC ---
Addendum entered and electronically signed by Shay Barrera MD 03/11/24 17:19:
for OR today for lap annalise
ivatb and fluids
Original Note:
Today's Communication/Plan
-
Lap cholecystectomy today.
Continue antibiotics, continue IV fluids.
Advance diet per surgery after surgery.
Assessment / Plan
Assessment / Plan
Rhkqhnoeuw-24-nlua-old female with PMHx significant for hypertension, adenocarcinoma of the lung stage I s/p radiation therapy, COPD chronic and stable, HLD, anxiety and depression presented to the hospital for evaluation of abdominal pain and is
diagnosed with acute pancreatitis and acute calculus cholecystitis.
Plan-
Acute pancreatitis-
Lipase levels greater than 4000.
Secondary to acute calculus cholecystitis.
Patient remains NPO from the midnight.
Optimal pain control-Currently patient is on Dilaudid and acetaminophen as needed.
Continue IV fluids, Zofran for nausea.
Acute calculus cholecystitis-
Elevated AST, ALT, ALP. Elevated total bilirubin send direct bilirubin.
Trending liver function improving, MRCP shows no evidence for choledocholithiasis.
Right upper quadrant pain with ultrasound of the gallbladder evidence at for multiple stones and gallbladder wall thickening.
GI and surgery consulted, appreciate input.
Plan for cholecystectomy laparoscopic today by surgery.
Appreciate GI and surgery inputs.
Continue IV Zosyn 4 times daily.
Leukocytosis-
WBC count on admission 14.0-currently resolved.
Normocytic anemia-
Suspect secondary to iron deficiency?
Order iron workup.
Could also be likely dilutional from the IV fluids.
VALENTINO-
Serum creatinine yesterday at 1.1, today at 1.0, improving.
Suspect secondary to acute calculus cholecystitis.
Hold lisinopril.
Continue to trend renal function.
Monitor for fluid overload.
Hypertension-
Continue home dose of metoprolol 150 Mg
Lisinopril on hold currently.
Patient is bradycardic when I saw her on bedside.
Suspect reflex bradycardia secondary to high-dose of metoprolol.
Chronic stable COPD-
On Spiriva and Symbicort at home.
Continue home medications.
No acute exacerbation during this hospital admission as of now.
Lung adenocarcinoma stage I-status post radiation therapy.
Anxiety/depression-
Continue Xanax and Tofranil.
DVT prophylaxis-SCDs.
CODE STATUS-full code.
Investigations -
MRI Abdomen -
Decreased signal intensity throughout the gallbladder lumen, compatible with numerous gallstones filling the gallbladder lumen. Rim of increased T2-weighted signal surrounding the gallstones, compatible with gallbladder wall thickening and/or
pericholecystic edema.
No evidence of biliary ductal dilation. No evidence of bile duct calculus.
There is edema surrounding the pancreas compatible with pancreatitis. No evidence for macroscopic pancreatic necrosis. No evidence for peripancreatic fluid collection.
Mild to moderate compression deformity involving the T11 vertebral body, stable from CT of the chest of December 28, 2023. Degenerative changes of the thoracic and lumbar spine.
Anticipated Discharge: 24 - 48 hours
Subjective/Interval History
-
Date of Service: March 11, 2024
Patient feels a lot better today. Denies abdominal pain, nausea, dizziness.
Objective Data
-
Labs:
Laboratory Results
03/11/24
08:13
WBC 6.6
Hgb 9.1 L
Hct 29.0 L
Plt Count 239
Sodium 140
Potassium 4.4
Chloride 109 H
Carbon Dioxide 21 L
BUN 23 H
Creatinine 1.0
Glucose 74
Calcium 7.9 L
Total Bilirubin 0.5 D
AST 167 H
ALT 339 H
Alkaline Phosphatase 315 H
Vital Signs:
Vital Signs
Temp Pulse Resp BP Pulse Ox
97.1 F 70 14 142/63 100
03/11/24 11:56 03/11/24 12:15 03/11/24 12:15 03/11/24 12:01 03/11/24 12:15
I&O
03/10/24 03/11/24 03/12/24
06:59 06:59 06:59
Intake Total 3115 / 3115
Balance 3115 / 3115
Review of Systems
-
History Source: Patient
Constitutional: Denies Fever, Fatigue or Chills
EENT: Reports No Symptoms Reported
Respiratory: Denies Cough or Trouble Breathing
Cardiac: Denies Chest Pain, Palpitations, Syncope, PND or Orthopnea
Abdomen/GI: Denies Abdominal Pain, Nausea, Vomiting, Diarrhea, Constipated, Bloody Stools or Black Stools
Genitourinary: Reports No Symptoms
Musculoskeletal: Reports No Symptoms
Skin: Reports No Symptoms
Neuro: Denies Dizzy, Headache or Weakness
Endocrine: Reports No Symptoms
Allergy / Immunology: Reports No Symptoms
Physical Exam
-
General: No Apparent Distress and Comfortable
HEENT: Moist Mucous Membranes
Respiratory: Clear to Auscultation; Negative Wheezes, Rales or Rhonchi
Cardiac: Regular Rhythm and S1/S2; Negative Murmur, Rub or Gallop
GI: Soft, Nontender, Nondistended and Normal Bowel Sounds
Musculoskeletal: No Clubbing, No Cyanosis and No Edema
Neuro: Awake and No Motor Deficits
Psych: Calm
Data Reviewed
-
MRI: Image personally visualized and interpreted, Report Reviewed by me and Discussed with Physician
Medical Tests (Nuc Med, Echo etc): Image personally visualized and interpreted, Report Reviewed by me and Discussed with Physician
Labs: Labs Reviewed by me and Discussed with Physician
Old Records: Reviewed
--- NOTE | 2024-03-11 12:33 | PTCARENOTE ---
Arouses easily, harvey n/c well, unable to maint SAO2 on ra, lip care given harvey well
--- NOTE | 2024-03-11 12:49 | SUR.PHASEI ---
Stable for d/c denies c/o
--- NOTE | 2024-03-11 13:29 | PTCARENOTE ---
Received pt from PACU via bed. A,A+O x 3, drowsy but arousable. 5 lap sites to abdomen D+I with surgical glue. IV fluids capped and O2 removed. Pt's POX on RA 95%. Will continue to monitor.
--- NOTE | 2024-03-11 16:13 | CM ---
Pt seen bedside. Initial assessment completed
Pt lives alone in a [address] townhouse called [facility] in [place]
Pt is independent. Pt states she has a cane for when she had a knee replacement but doesn't use currently. No other DME identified
Pt had OP rehab in the past following knee replacement at [place] [facility]
Denies VN/PT hx
Denies financial insecurities
Lap cholecystectomy done today
Cont abx
Currently on 2L O2, cont. to wean. Pt denies having home O2
Per pt, she will have private transport at d/c
Plan: Home; no needs anticipated
[2024-03-11] MEDS: XANAX 0.25 MG PO (21:58)
[2024-03-11] MEDS: TOFRANIL 200 MG PO (21:58)
[2024-03-11] MEDS: TOPROL XL 150 MG PO (22:01)
[2024-03-12] MEDS: ZOSYN 50 IV ×2 (03:18→11:33)
[2024-03-12 03:32] VITALS: BP 126/61
[2024-03-12] MEDS: NORCO 5/325 1 TABLET PO (04:24)
[2024-03-12] MEDS: SPIRIVA RESPIMAT 2.5 MCG 2 PUFF INH (07:07)
[2024-03-12] MEDS: SYMBICORT 80/4.5 MCG INHALER 2 PUFF INH (07:07)
--- NOTE | 2024-03-12 07:12 | W.PN.GI.CBS2 ---
Today's Communication / Plan
-
Please see assessment and plan for details.
Assessment / Plan
-
1. Abdominal pain: Consistent with gallstone pancreatitis, though prompt resolution of symptoms and improved numbers, likely spontaneously passed CBD stone, now with no significant pain or tenderness now, status post cholecystectomy. She is
tolerated diet, will await morning labs. Continue postoperative care per surgery.
Will sign off for now, please call back with any further questions.
Subjective
Subjective
Date of Service: March 12, 2024
The patient is feeling well postcholecystectomy, some mild expected incisional tenderness. No nausea or vomiting, tolerated some dinner without difficulty.
Objective
Data Reviewed
Laboratory Data:
Laboratory Results
Total Bilirubin 0.5 mg/dl (0.2-1.3) D 03/11/24 08:13
AST 167 U/L (14-36) H 03/11/24 08:13
ALT 339 U/L (0-35) H 03/11/24 08:13
Alkaline Phosphatase 315 U/L (38-126) H 03/11/24 08:13
Lipase > 4000 U/L (23-300) H* 03/10/24 00:14
Vital Signs and I&O:
Vital Signs
Temp Pulse Resp BP Pulse Ox
98.1 F 66 18 126/61 96
03/12/24 03:32 03/12/24 03:32 03/12/24 03:32 03/12/24 03:32 03/12/24 03:32
I&O
03/11/24 03/12/24 03/13/24
06:59 06:59 06:59
Intake Total 3115 / 3115 1310 / 1310
Balance 3115 / 3115 1310 / 1310
Physical Exam
Physical Exam
General: NAD
Abdomen: normal bowel sounds, soft, minimal expected incisional tenderness, no masses or bruits, no ascites
[2024-03-12 07:30] VITALS: BP 132/57
[2024-03-12 09:38] LABS: Hematocrit 28.3 % (37.0-47.0); Mean Corp Hgb Conc. 31.8 g/dL (33.0-37.0); Mean Corpuscular Hgb 28.5 pg (27.0-31.0); Mean Corpuscular Volume 89.6 fL (81.0-99.0); Mean Platelet Volume 10.3 fL (7.4-10.4); Platelet Count 254 10^3/uL (130-400); Red Blood Cell Count 3.16 10^6/uL (4.20-5.40); Red Cell Dist. Width 14.5 % (11.5-14.5); White Blood Cell Count 14.4 10^3/uL (4.8-10.8)
[2024-03-12 10:07] LABS: ALT (SGPT) 279 U/L (0-35); AST (SGOT) 121 U/L (14-36); Albumin 3.4 g/dl (3.5-5.0); Alkaline Phosphatase 285 U/L (38-126); Blood Urea Nitrogen 19 mg/dl (7-17); Calcium 8.1 mg/dl (8.4-10.2); Carbon Dioxide 22 mmol/L (22-30); Chloride 105 mmol/L (98-107); Estimated Creatinine Clearance 62 ml/min; Glucose 150 mg/dl (70-99); Potassium 4.3 mmol/L (3.5-5.1); Sodium 139 mmol/L (135-145); Total Bilirubin 0.3 mg/dl (0.2-1.3); eGFR > 60.00
[2024-03-12 11:42] VITALS: BP 111/58
--- NOTE | 2024-03-12 13:15 | CM ---
Per hospitalist, pt is medically stable for d/c. No longer require O2
IMM reviewed, pt given copy. Copy placed in chart
Per pt, a family member will transport home
No further CM needs identified at this time
Plan: Home; no needs
--- NOTE | 2024-03-12 13:40 | W.PN.HOSP.TC ---
Addendum entered and electronically signed by Shay Barrera MD 03/12/24 14:19:
dc home
outpt surgery and pcp follow up
toelrating diet well
passing flatus
no bm as of yet
cleared by surgery for dc home
More than 30 minutes spent in discharge including
Final examination of the patient
Summarizing hospital stay
Instructions for continuing care to all relevant caregivers
Preparation of discharge records, prescriptions, and referral forms
Total time spent (in minutes): 32mins
Original Note:
Today's Communication/Plan
-
Plan for discharge.
Assessment / Plan
Assessment / Plan
Xjfbzwvull-56-jwll-old female with PMHx significant for hypertension, adenocarcinoma of the lung stage I s/p radiation therapy, COPD chronic and stable, HLD, anxiety and depression presented to the hospital for evaluation of abdominal pain and is
diagnosed with acute pancreatitis and acute calculus cholecystitis.
Plan-
Acute calculus cholecystitis-
postop day 1, s/p cholecystectomy
Tolerating regular diet well, no nausea, vomiting passed flatus but no bowel movements yet.
Liver function tests improved to AST 121, ALT 279, ALP 285.
GI and surgery signed off, patient stable for discharge.
Changed IV Zosyn to Augmentin oral for next 4 days-a total of 7-day course.
Optimal pain control, plan for discharge today.
Acute pancreatitis-
Lipase levels greater than 4000.
Secondary to acute calculus cholecystitis.
Optimal pain control
Leukocytosis-
WBC count on admission 14.0-currently resolved.
Normocytic anemia-
Suspect secondary to iron deficiency?
Order iron workup.
Could also be likely dilutional from the IV fluids.
VALENTINO-
Resolved, resumed lisinopril.
Continue to trend renal function.
Monitor for fluid overload.
Hypertension-
Continue home dose of metoprolol 150 Mg
Resume lisinopril today.
Patient is bradycardic when I saw her on bedside.
Suspect reflex bradycardia secondary to high-dose of metoprolol.
Chronic stable COPD-
On Spiriva and Symbicort at home.
Continue home medications.
No acute exacerbation during this hospital admission as of now.
Lung adenocarcinoma stage I-status post radiation therapy.
Anxiety/depression-
Continue Xanax and Tofranil.
DVT prophylaxis-SCDs.
CODE STATUS-full code.
Investigations -
MRI Abdomen -
Decreased signal intensity throughout the gallbladder lumen, compatible with numerous gallstones filling the gallbladder lumen. Rim of increased T2-weighted signal surrounding the gallstones, compatible with gallbladder wall thickening and/or
pericholecystic edema.
No evidence of biliary ductal dilation. No evidence of bile duct calculus.
There is edema surrounding the pancreas compatible with pancreatitis. No evidence for macroscopic pancreatic necrosis. No evidence for peripancreatic fluid collection.
Mild to moderate compression deformity involving the T11 vertebral body, stable from CT of the chest of December 28, 2023. Degenerative changes of the thoracic and lumbar spine.
Anticipated Discharge: Today
Subjective/Interval History
-
Date of Service: March 12, 2024
Patient reports to be feeling fine and tolerating the oral feeds well. No nausea, vomiting, passing flatus but no bowel movements yet.
Objective Data
-
Labs:
Laboratory Results
03/12/24
09:08
WBC 14.4 H
Hgb 9.0 L
Hct 28.3 L
Plt Count 254
Sodium 139
Potassium 4.3
Chloride 105
Carbon Dioxide 22
BUN 19 H
Creatinine 0.8
Glucose 150 H
Calcium 8.1 L
Total Bilirubin 0.3
AST 121 H
ALT 279 H
Alkaline Phosphatase 285 H
Vital Signs:
Vital Signs
Temp Pulse Resp BP Pulse Ox
98.7 F 73 18 111/58 96
03/12/24 11:42 03/12/24 11:42 03/12/24 11:42 03/12/24 11:42 03/12/24 11:42
I&O
03/11/24 03/12/24 03/13/24
06:59 06:59 06:59
Intake Total 3115 / 3115 1310 / 1310
Balance 3115 / 3115 1310 / 1310
Review of Systems
-
History Source: Patient
Constitutional: Reports No Symptoms
Respiratory: Reports No Symptoms
Cardiac: Reports No Symptoms
Abdomen/GI: Reports Abdominal Pain (Soreness from the surgeries-10/15)
Breast: Reports No Symptoms
Genitourinary: Reports No Symptoms
Musculoskeletal: Reports No Symptoms
Neuro: Reports No Symptoms
Endocrine: Reports No Symptoms
Hematologic / Lymphatic: Reports No Symptoms
Physical Exam
-
General: No Apparent Distress and Comfortable
HEENT: Moist Mucous Membranes and PERRLA
Respiratory: Clear to Auscultation; Negative Wheezes, Rales or Rhonchi
Cardiac: Regular Rhythm and S1/S2; Negative Murmur, Rub or Gallop
GI: Soft, Nontender, Nondistended, Normal Bowel Sounds and Other (Incision sites-clean, dressing intact)
Genito-urinary: No Costovertebral Tender
Skin: Warm
Neuro: Awake and Alert
Psych: Calm
Data Reviewed
-
Diagnostic Radiology: Image personally visualized and interpreted and Report Reviewed by me
CT Scan: Image personally visualized and interpreted and Report Reviewed by me
Ultrasound: Image personally visualized and interpreted, Report Reviewed by me and Discussed with Physician
Medical Tests (Nuc Med, Echo etc): Image personally visualized and interpreted and Report Reviewed by me
Labs: Labs Reviewed by me and Discussed with Physician
--- NOTE | 2024-03-12 13:46 | W.DCSUMMARY ---
Documented by User: Zeina Mclain MD, Resident 03/12/24 13:52
Discharge Summary
Discharge Data
Date of Admission: 03/10/24
Date of Discharge: 03/12/24
-
Pending Results: No
Hospital Course
Impression -
73-year-old female with PMHx significant for hypertension, adenocarcinoma of the lung stage I s/p radiation therapy, COPD chronic and stable, HLD, anxiety and depression presented to the hospital for evaluation of abdominal pain and is diagnosed
with acute pancreatitis and acute calculus cholecystitis.
Hospital course-
Upon arrival to the hospital, patient's liver enzymes are elevated to AST and ALT of about 592, 602 and alkaline phosphatase at 361, lipase at 4000. A diagnosis of acute pancreatitis is made and her ultrasound of the upper abdomen showed multiple
gallstones in the gallbladder. Acute pancreatitis secondary to acute calculus cholecystitis diagnosis is made and patient is admitted to the hospital made n.p.o., given IV fluids and IV Zofran as needed with optimal pain management. GI and general
surgery were consulted. GI planned MRCP to evaluate for choledocholithiasis which was negative. Overnight patient started to show significant improvement in AST and ALT from her admission, general surgery proceeded with laparoscopic
cholecystectomy, and patient did well postoperatively. Hence patient's diet was advanced on postop day 0 to regular diet and patient has been tolerating the diet well into postop day 1. Patient is discharged and had discharge AST ALT and alkaline
phosphatase were at 121, 279, 285.
Patient is advised to get a CMP and follow-up with her primary care physician as well as surgeon in 2 to 4 weeks.
Investigations -
MRI Abdomen -
Decreased signal intensity throughout the gallbladder lumen, compatible with numerous gallstones filling the gallbladder lumen. Rim of increased T2-weighted signal surrounding the gallstones, compatible with gallbladder wall thickening and/or
pericholecystic edema.
No evidence of biliary ductal dilation. No evidence of bile duct calculus.
There is edema surrounding the pancreas compatible with pancreatitis. No evidence for macroscopic pancreatic necrosis. No evidence for peripancreatic fluid collection.
Mild to moderate compression deformity involving the T11 vertebral body, stable from CT of the chest of December 28, 2023. Degenerative changes of the thoracic and lumbar spine.
Discharge Plan
-
Patient Disposition: Home (Routine Discharge)
Discharge Diagnosis/Procedures: Acute calculus cholecystitis, acute gallstone pancreatitis, s/p cholecystectomy day 1.
Condition: Fair
Diet: No restrictions
Activity: No strenuous activity
Bathing Restrictions: OK to Shower
Wound Care: Allow skin glue to flake off on its own
Instructions: Cholecystectomy (DC), Gallstones (DC)
Referrals:
Jerald Grande MD [Active] - in two to four weeks
Penny Longoria DO [Family Provider] -
Additional Discharge Medication Instructions: Alternate ibuprofen and extra strength tylenol for pain, follow directions on the bottle. Use ice packs and/or heating pads. When this is not enough take [place] (formerly known as vicodin). You must take
care not to exceed 4000mg tylenol in a 24 hr period (the [place] contains tylenol).
Prescriptions:
New
hydrocodone-acetaminophen 5-325 mg tablet
1 - 2 tab PO Q4H PRN (Reason: Pain) Qty: 14 0RF
amoxicillin-pot clavulanate 875-125 mg tablet
1 tab PO BID 4 Days Qty: 8 0RF
Continued
alprazolam 0.25 MG tablet
0.25 mg PO HS
albuterol sulfate 1 PUFF HFA aerosol inhaler
2 puff inhalation R Q4HPRN PRN (Reason: shortness of breath or wheeze) Qty: 1 0RF
metoprolol succinate 100 mg Tablet Extended Release 24 Hr
150 mg PO HS
Trelegy Ellipta 100-62.5-25 mcg Blister With Device
1 inh INHALATION R DAILY
lisinopril 20 mg Tablet
20 mg PO HS
aspirin 81 mg Tablet,Delayed Release (Dr/Ec)
81 mg PO HS
cholecalciferol (vitamin D3) [Vitamin D3] 25 mcg (1,000 unit) Tablet
25 mcg PO HS
mecobalamin (vitamin B12) 1,000 mcg Tablet,Chewable
1,000 mcg PO HS
imipramine HCl 50 mg Tablet
200 mg PO QHS
atorvastatin 20 mg Tablet
20 mg PO DAILY
therapeutic multivitamin Tablet
1 tab PO DAILY
omeprazole 20 mg Capsule,Delayed Release(Dr/Ec)
20 mg PO DAILY
folic acid 1 mg Tablet
1 mg PO DAILY
Discharge Orders:
Discharge Patient (As Directed); Ordered 03/12/24
Ordered By: Zeina Mclain
Discharge Date and Time
Print Language: BURKINAN

Documented by User: Shay Barrera MD 03/12/24 14:18
Discharge Summary
Discharge Data
Date of Admission: 03/10/24
Date of Discharge: 03/12/24
Discharge Plan
-
Patient Disposition: Home (Routine Discharge)
Discharge Diagnosis/Procedures: Acute calculus cholecystitis, acute gallstone pancreatitis, s/p cholecystectomy day 1.
Condition: Fair
Diet: No restrictions
Activity: No strenuous activity
Bathing Restrictions: OK to Shower
Wound Care: Allow skin glue to flake off on its own
Instructions: Cholecystectomy (DC), Gallstones (DC)
Referrals:
Jerald Grande MD [Active] - in two to four weeks
Penny Longoria DO [Family Provider] -
Additional Discharge Medication Instructions: Alternate ibuprofen and extra strength tylenol for pain, follow directions on the bottle. Use ice packs and/or heating pads. When this is not enough take [place] (formerly known as vicodin). You must take
care not to exceed 4000mg tylenol in a 24 hr period (the [place] contains tylenol).
Prescriptions:
New
hydrocodone-acetaminophen 5-325 mg tablet
1 - 2 tab PO Q4H PRN (Reason: Pain) Qty: 14 0RF
amoxicillin-pot clavulanate 875-125 mg tablet
1 tab PO BID 4 Days Qty: 8 0RF
Continued
alprazolam 0.25 MG tablet
0.25 mg PO HS
albuterol sulfate 1 PUFF HFA aerosol inhaler
2 puff inhalation R Q4HPRN PRN (Reason: shortness of breath or wheeze) Qty: 1 0RF
metoprolol succinate 100 mg Tablet Extended Release 24 Hr
150 mg PO HS
Trelegy Ellipta 100-62.5-25 mcg Blister With Device
1 inh INHALATION R DAILY
lisinopril 20 mg Tablet
20 mg PO HS
aspirin 81 mg Tablet,Delayed Release (Dr/Ec)
81 mg PO HS
cholecalciferol (vitamin D3) [Vitamin D3] 25 mcg (1,000 unit) Tablet
25 mcg PO HS
mecobalamin (vitamin B12) 1,000 mcg Tablet,Chewable
1,000 mcg PO HS
imipramine HCl 50 mg Tablet
200 mg PO QHS
atorvastatin 20 mg Tablet
20 mg PO DAILY
therapeutic multivitamin Tablet
1 tab PO DAILY
omeprazole 20 mg Capsule,Delayed Release(Dr/Ec)
20 mg PO DAILY
folic acid 1 mg Tablet
1 mg PO DAILY
Discharge Orders:
Discharge Patient (As Directed); Ordered 03/12/24
Ordered By: Zeina Mclain
Discharge Date and Time
Print Language: BURKINAN
== END 2024-03-12 14:23 | disposition home or self-care (01) | DRG 417 ==
LOC: 4 WEST ACU 03:52
PROVIDERS: Emergency Medicine; Nurse Practitioner; Student in an Organized Health Care Education/Training Program; Surgery; ADMITTING PHYSICIAN Hospitalist; ATTENDING PHYSICIAN Hospitalist; CONSULT PHYSICIAN Internal Medicine Gastroenterology; CONSULT PHYSICIAN Surgery; EMERGENCY PHYSICIAN Student in an Organized Health Care Education/Training Program; FAMILY PHYSICIAN Family Medicine
PROC: 0FT44ZZ Resection of Gallbladder, Percutaneous Endoscopic Approach (ICD-10-PCS; 2024-03-11)
DX: K80.12 Calculus of gallbladder with acute and chronic cholecystitis without obstruction (principal); K85.10 Biliary acute pancreatitis without necrosis or infection; N17.9 Acute kidney failure, unspecified; F17.200 Nicotine dependence, unspecified, uncomplicated; K82.8 Other specified diseases of gallbladder; K66.0 Peritoneal adhesions (postprocedural) (postinfection); I10 Essential (primary) hypertension; J44.89 Other specified chronic obstructive pulmonary disease; F41.9 Anxiety disorder, unspecified; F32.A Depression, unspecified
CPT/HCPCS: 88304; 74183; 76700; 80048; 80053; 80076; 82248; 83605; 83690; 84484; 85025; 85027; 93005; 94640; 96365; 96375; 99285; A9585

== ENCOUNTER → 2024-05-26 15:29 | Outpatient (REF) | payer OTHER, SELFPAY | LOC: RAD 15:29 | PROVIDERS: ATTENDING PHYSICIAN Radiology Radiation Oncology; FAMILY PHYSICIAN Student in an Organized Health Care Education/Training Program | DX: C34.32 Malignant neoplasm of lower lobe, left bronchus or lung (principal) | CPT/HCPCS: 71250 ==

== ENCOUNTER → 2024-09-30 11:30 | Outpatient (REF) | payer OTHER, SELFPAY | LOC: RAD 11:30 | PROVIDERS: ATTENDING PHYSICIAN Radiology Radiation Oncology; FAMILY PHYSICIAN Student in an Organized Health Care Education/Training Program | DX: C34.32 Malignant neoplasm of lower lobe, left bronchus or lung (principal) | CPT/HCPCS: 71250 ==

== ENCOUNTER 2024-11-13 10:20 | Inpatient (IN) | payer OTHER, SELFPAY ==
[2024-11-13] VITALS (12 sets, daily range): BP systolic 111–148; BP diastolic 53–111
--- NOTE | 2024-11-13 09:32 | ED.GENMED ---
History of Present Illness
General
Chief Complaint: Chest Pain
Source: patient and ambulance crew
Time Seen by Provider: 11/13/24 09:32
History of Present Illness
History of Present Illness:
74-year-old female presents to the emergency room complaining of chest pain. Patient began having epigastric and chest discomfort suddenly about an hour prior to arrival. She called 911. When going to the store to unlock it she had a syncopal
episode. She found herself on the ground. Fortunately she not strike her head. She actually fell onto some pillows that she had put next to the door so she could take them out later. Upon arrival to the emergency room she is complaining of 2 out
of 10 chest pain. The prehospital EKG showed inferior wall ST elevation. She was hypotensive for paramedics in the 80s systolic.
Past History
Past History
ED Past Medical History: HTN and Psychiatric (Depression)
Social History
Tobacco: Smoker
Alcohol: Occasional
Drug: None
Personal: Single
Living: alone
Phy Exam
Physical Exam
Physical Exam:
General: Awake, Alert, Oriented X3. No acute distress.
Vitals: unremarkable
Head: Atraumatic
Eyes: Pupils equal, EOMI
Throat: Airway intact, no exudates
Neck: Trachea midline
Lungs: Clear and equal b/l
Heart: Regular rate, no murmurs
Abd: Soft, Nontender, No pulsatile mass
Neuro: Nonfocal
Skin: Warm, dry, no rash
Extremities: pulses equal b/l, no edema
Scores
Heart Score for Chest Pain Patients
STEMI patient?: Yes
Course
Orders/Labs/Results
Orders:
Orders
11/13/24 06:00
Echo 2D MMode Color/Doppler Routine
Reason for Study: chest pain
Comment: dca
11/13/24 09:23
Electrocardiogram (*1) Urgent
Reason for Study: Chest Pain
Cardiac Monitoring- Treatment ONCE
EKG- Treatment ONCE
IV Insert/Care/Rem.- Treatment PRN
O2 Therapy [RESP] Urgent
Titrate/Wean O2 to maintain O2 sat greater than (%): 90
Special Instructions: Maintain sats >/=90%
Pulse Ox/spot Check [RESP] Urgent
Quantity: 1
Special Instructions: ON ROOM AIR
11/13/24 09:28
Heparin 1000 Units/500 ml [Heparin] 1,000 units in 500 ml .ROUTE .STK-MED
Heparin Sodium,Porcine/Ns/Pf [Heparin 2000 Units/1000 ml] 2,000 unit in 1,000 ml .ROUTE .STK-MED
Lidocaine HCl/Pf [Xylocaine-Mpf 1% Vial] 100 mg .ROUTE .STK-MED ONE
Nitroglycerin [Tridil] 1,500 mcg .ROUTE .STK-MED ONE
Verapamil Injectable [Isoptin/Verapamil Injection] 5 mg .ROUTE .STK-MED ONE
11/13/24 09:35
Complete Blood Count/With Diff Urgent
Comprehensive Metabolic Panel Urgent
Glycohemoglobin (HgbA1c) Urgent
Troponin I Urgent
11/13/24 09:43
Midazolam HCl [Versed] 2 mg .ROUTE .STK-MED ONE
11/13/24 09:44
Fentanyl Citrate/Pf [Sublimaze] 100 mcg .ROUTE .STK-MED ONE
Heparin 10,000 units .ROUTE .STK-MED ONE
Heparin 5,000 units .ROUTE .STK-MED ONE
Ticagrelor [Brilinta] 180 mg .ROUTE .STK-MED ONE
11/13/24 09:50
Heparin 1000 Units/500 ml [Heparin] 1,000 units in 500 ml .ROUTE .STK-MED
11/13/24 Lunch
Cholesterol Lowering
At Your Request: Full Participation
Does patient need a safe tray?: No
Cholesterol Lowering: Sodium, 2 Gram
11/13/24 10:14
Acetaminophen [Tylenol] 650 mg PO Q4HPRN PRN
11/13/24 10:15
Admit Patient As Directed
Co-Sign Provider:
Level of Care: Inpatient admission
Assign to:: IVU
Physician / Group: dca
Diagnosis: Chest pain
Reason for Hospitalization: Chest pain with EKG changes
Expected length of stay greater than two midnights?: Yes
ELOS- Estimated Length of Stay in days: 3
I certify the patient meets the requirements for IP care: Yes
Electrocardiogram (*1) Urgent
Reason for Study: Other
Other Reason for Exam: s/p intervention
Comment: dca
CARDIAC REHAB CONSULT Routine
Co-Sign Provider:
Cardiac Rehab & Exercise Evaluation Referral
Type of Cardiac Rehab Referral: Outpatient
Diagnosis: Angina, Unspecified
Date of Diagnosis/Surgery: 11/13/24
Referring Provider: Yovani Lucero
[facility] Intensive Cardiac Rehab Exercise Prescription
The above named person is capable of participating in an intensive cardiac rehab exercise therapy program
under the guidance of the [facility] cardiac rehab staff, outpatient registered dieticians and
supervision of a physician.
ICR Program Objectives:
Provide supervised exercise, cooking classes, nutritional counseling and healthy mind-set education to
improve the function/symptom free work capacity to an optimal level as well as control risk factors to
prevent the progression of heart disease. During the supervised exercise therapy session some or all of
the following may be included in the cardiac rehab session: ECG telemetry, BP, heart rate, rate of
perceived exertion, symptoms/tolerance, cholesterol testing and education. Exercise modalities may
include: treadmill, upright or recumbent bike, spin bike, rowing machine, elliptical, recumbent
elliptical, arm-bike machine, recumbent stepper and free weights.
Intensity:
All CR staff will use ACSM guidelines: Most patients will exercise in the following range: Heart Rate
[place] range of 40% to 80% & Oxygen Uptake reserve range 40-80% (VO2R). Peak heart rate and VO2 are
derived from the cardiac rehab submaximal graded exercise test at RPE of 13/14 out of 20. Initial
intensity range: RPE 11 to 14/20 and may expand to 11 to 16/20.
Duration & Frequency:
If appropriate the patient will be progressed up to 40 minutes of exercise therapy. Patients will be
instructed to come three times a week in cardiac rehab and at a home/other gym to achieve optimal
physical activity/exercies i.e. 4000-10,000 steps per day.
Education:
The patient will receive one-on-one education during their orientation, initial exercise evaluation, ITP
reassessments and discharge session. Each exercise session will also include an education class (30-40
minutes).
0.9% Sodium Chloride 1000 ml [Nss] 1,000 ml IV PER PROTOCOL
Infusion rate in mL/kg/hr:: 1.5
Infusion rate in mL/hr:: 117
Duration of infusion (hours):: 5
Activity As Directed
Activity Level: Out of Bed- Chair
Comment: bed/chair rest for 2 hours then out of bed ad [place]
[facility] Procedure As Directed
Cardiac Cath Procedure: percutaneous coronary intervention
Intake/ Output As Directed
Frequency: Per unit guidelines
Notify MD As Directed
Notify physician if: immediately for chest pain or bleeding from access site(s)
Radial Artery Hemostasis Method As Directed
Instructions:: 3 mL out at 2 hour posts placement of band
3 mL out at 2 1/2 hours post placement of band
3 mL out at 3 hours post placement of band
Off at 3 1/2 hours post placement of band
If any oozing or hemotoma occurs:: re-inflate band and call provider
Site Checks As Directed
Check access site for bleeding/hematoma: Yes
Comment: on arrival, Q15min x4, Q30min x2, Q1 hr x2, Q2 hr x2, Q4 hr or per
protocol
Vascular Checks As Directed
Location: distal to access site - pulse check
Frequency: Other
Comment: on arrival, Q15min x4, Q30min x2, Q1 hr x2, Q2 hr x2, Q4 hr or per protocol
Vital Signs As Directed
Frequency: Other
Additional Instructions:: on arrival, Q15min x4, Q30min x2, Q1 hr x2, Q2 hr x2, then Q4 hr or per unit
protocol
PRN Pain Medication Management As Directed
May give lesser potent ordered pain med per pt: Yes
preference::
Protocol:: Medication orders for pain may be administered in a
manner that supports deferring to patient preference
when the pt is:
- Requesting an ordered lesser potent pain medication.
Least to most potent pain medications are defined
as: acetaminophen < NSAID < tramadol < opioids
(morphine, oxycodone, hydromorphone).
- Requesting a lesser dose of the same medication IF
ORDERED.
- Requesting a less intrusive route of administration
if both routes are prescribed by the provider (PO <
IV).
DX Deep Vein Thrombosis Video Routine
11/13/24 16:00
Troponin I Q8H
11/13/24 18:00
Atorvastatin [Lipitor] 40 mg PO QPM
Enoxaparin Sodium [Lovenox] 40 mg SC QPM
Lisinopril [Zestril] 20 mg PO QPM
11/14/24 00:00
Troponin I Q8H
11/14/24 06:00
Electrocardiogram (*1) IN AM
Reason for Study: Other
Other Reason for Exam: s/p intervention
Comment: dca
Basic Metabolic Panel IN AM
Cardiovascular Evaluation IN AM
Complete Blood Count/No Diff IN AM
11/14/24 08:00
Troponin I Q8H
Aspirin Chewable [Low Strength Aspirin] 81 mg PO DAILY
Pantoprazole [Protonix] 40 mg PO DAILY
11/15/24 06:00
Basic Metabolic Panel IN AM
Complete Blood Count/No Diff IN AM
11/16/24 06:00
Basic Metabolic Panel IN AM
Complete Blood Count/No Diff IN AM
Abnormal Lab Results
11/13/24 11/13/24 11/13/24
09:52 10:00
RBC 4.04 L 10^6/uL
(4.20-5.40)
Hgb 11.7 L g/dL
(12.0-16.0)
Hct 36.7 L %
(37.0-47.0)
MCHC 31.9 L g/dL
(33.0-37.0)
Absolute Monos (auto) 0.8 H 10^3/uL
(0.1-0.6)
Monocytes % 9.7 H %
(1.7-9.3)
Potassium 5.4 H mmol/L
(3.5-5.1)
Chloride 108 H mmol/L
(98-107)
BUN 26 H mg/dl
(7-17)
Hemoglobin A1c 6.0 H %
(4.0-5.6)
Calcium 8.1 L mg/dl
(8.4-10.2)
POC ACT Low Range 184 H Seconds 265 H Seconds
(116-155) (116-155)
11/13/24 09:35
11/13/24 09:35
Vital Signs
Initial and Last Documented VS:
Initial Vital Signs
Temp Pulse Resp Pulse Ox
97.7 F 59 18 97
11/13/24 09:24 11/13/24 09:24 11/13/24 09:24 11/13/24 09:24
Last Documented Vital Signs
Temp Pulse Resp BP Pulse Ox
97.7 F 68 18 148/111 98
11/13/24 09:24 11/13/24 09:35 11/13/24 11:40 11/13/24 09:35 11/13/24 10:18
MDM/Problems Addressed
Differential Diagnosis Includes:
STEMI, NSTEMI, dysrhythmia, hypotension
MDM/Problems Addressed:
Patient presents with chest pain and EKG changes consistent with an inferior wall TN. Prehospital EKG diagnostics so no need to repeat. A prehospital STEMI alert was called prior to arrival. Dr. Harden at the bedside almost immediately and will
take the patient to the [facility]. Patient received 5000 heparin, 180 of Brilinta and had received 324 mg of baby aspirin in the prehospital setting.
*Pulse Oximetry
SaO2: 98
Oxygen Mode of Delivery: Room air
Patient hypoxic: no
*EKG
Interpreted by ED Provider?: Yes
Interpretation: abnormal
Rate: normal
Rhythm: sinus
[place]: normal axis
Interval: normal interval
Ischemia: ST elevation (Leads to 3 and aVF with reciprocal changes)
*Fur Grader Interpretation
Rate: normal
Interpretation: normal
Rhythm: sinus
*Critical Care Note
Total Time (30-74mins, 75-104mins- exclusive of procedures): 20 min
comment:
Critical care statement: A total of 20 minutes of critical care time was provided for this patient. This includes management of unstable vital signs, evaluation of the patient at bedside, reviewing the patient's pertinent medical records, discussion
with consultants, review of old EKGs and review of pertinent medical records. This time with separate from time utilized to perform the aforementioned documented procedures
ED Attending Note
-
Portions of this chart may have been created with voice recognition software.� Occasional wrong word or��sound alike� substitutions may have occurred due to the inherent limitations of voice recognition software.
Discharge Plan
Departure
Patient Disposition: Admit
Date of Disposition: 11/13/24
Time of Disposition: 09:32
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
Presentation/result/management discussed w/ accepting MD/DO: dr harden
Discharge Problem:
Acute TN, inferior wall
Interventions
Interventions:
*Risk Screen - Suicide Last Done: 11/13/24 09:24
*General Assessment Last Done: 11/13/24 09:24
*Neglect/Abuse Screening Last Done: 11/13/24 09:24
*ED- Fall Risk Assessment Last Done: 11/13/24 09:45
*ED COVID-19 Vaccine History Last Done: 11/13/24 09:45
*Nursing Disposition Last Done: 11/13/24 09:45
ED- Cardiac Assessment Last Done: 11/13/24 09:45
Discharge Date and Time
Discharge Date/Time: 11/13/24 09:49
[2024-11-13 09:52] LABS: Hematocrit 36.7 % (37.0-47.0); Hemoglobin 11.7 g/dL (12.0-16.0); Mean Corp Hgb Conc. 31.9 g/dL (33.0-37.0); Mean Corpuscular Volume 90.8 fL (81.0-99.0); Nucleated Red Blood Cells % 0 %; Platelet Count 280 10^3/uL (130-400); Red Cell Dist. Width 13.5 % (11.5-14.5)
--- NOTE | 2024-11-13 09:55 | HPS.HSE ---
Family Physician
-
Family Physician: Sulma Niño MD
Chief Complaint
-
STEMI
History of Present Illness
74 yo WF h/o HTN, HLD, Adenocarcinoma of lung LULI post XRT 2023, COPD, former smoker who developed SSCP 10/15, vomited with dizziness with syncope and she called 911, prehospital EKG with mild inferior ST changes, STEMI alert called. She was given
ASA 324 in field, Brilinta, Heparin 5000u in ER. She was brought urgently to [employer] [facility].
Medical History
Past Medical History
Past Medical History: Reports Cancer (Adenocarcinoma LULI, XRT), COPD, HTN, Hypercholesterolemia, Psychiatric (Anxiety, depression) and Other (celiac disease, Shingles, anemia, UTI)
Past Surgical History: Reports Orthopedic (TKR L 23), Tonsilectomy and Other (lung bx 07/30)
Social History
Tobacco: Former Smoker (25 pyh)
Alcohol: None
Drug: None
Living: With Family
Family History
Family History: Cancer
Allergies / Home Medications
Allergies reflects when Allergies were last updated in [facility].
Home Medications with original date entered in [facility]
Allergy/Medication List:
Allergies
Allergy/AdvReac Type Severity Reaction Status Date / Time
gluten Allergy Nausea Verified 11/13/24 09:24
meperidine HCl (From Demerol) Allergy Anaphylaxis Verified 11/13/24 09:24
prochlorperazine edisylate Allergy Anaphylaxis Verified 11/13/24 09:24
(From Compazine)
prochlorperazine maleate Allergy Anaphylaxis Verified 11/13/24 09:24
(From Compazine)
nuts Allergy Anaphylaxis Uncoded 11/13/24 09:24
�Medication �Instructions �Recorded �Confirmed �Type
alprazolam 0.25 mg tablet 0.25 mg PO HS Mental Health/Anxiety 04/12/13 03/10/24 History
albuterol sulfate 90 mcg/actuation 2 puff inhalation R Q4HPRN PRN 04/14/13 03/10/24 Rx
aerosol inhaler shortness of breath or wheeze ##1
aspirin 81 mg tablet,delayed 81 mg PO HS Blood Clot 07/24/23 03/10/24 History
release Prevention/Tx
cholecalciferol (vitamin D3) 25 25 mcg PO HS Supplement 07/24/23 03/10/24 History
mcg (1,000 unit) tablet (Vitamin
D3)
fluticasone fur. 100 mcg-umeclid 1 inh inhalation R DAILY 07/24/23 03/10/24 History
62.5 mcg-vilant 25 mcg Lung/Breathing Issues
inhalat.powder (Trelegy Ellipta)
imipramine HCl 50 mg tablet 200 mg PO QHS Mental Health/Anxiety 07/24/23 03/10/24 History
lisinopril 20 mg tablet 20 mg PO HS Blood Pressure 07/24/23 03/10/24 History
mecobalamin (vitamin B12) 1,000 1,000 mcg PO HS Supplement 07/24/23 03/10/24 History
mcg chewable tablet
metoprolol succinate 100 mg 150 mg PO HS Heart 07/24/23 03/10/24 History
tablet,extended release 24 hr Disease/Condition
atorvastatin 20 mg tablet 20 mg PO DAILY High Cholesterol 03/10/24 03/10/24 History
folic acid 1 mg tablet 1 mg PO DAILY Supplement 03/10/24 03/10/24 History
omeprazole 20 mg capsule,delayed 20 mg PO DAILY Gastrointestinal 03/10/24 03/10/24 History
release Issue
therapeutic multivitamin 1 tab PO DAILY Supplement 03/10/24 03/10/24 History
hydrocodone 5 mg-acetaminophen 325 1 - 2 tab PO Q4H PRN Pain #14 tabs 03/11/24 Rx
mg tablet
amoxicillin 875 mg-potassium 1 tab PO BID 4 days #8 tabs 03/12/24 Rx
clavulanate 125 mg tablet
Review of Systems
-
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
Physical Exam
Vital Signs
Vital Signs
Temp Pulse Resp BP Pulse Ox
97.7 F 68 16 148/111 97
11/13/24 09:24 11/13/24 09:35 11/13/24 09:35 11/13/24 09:35 11/13/24 09:35
Physical Exam
General: Pain (deferred as being prepped and draped on labor economics teacher table)
Laboratory Results
-
11/13/24 09:35
Data Reviewed
-
Medical Tests (Nuc Med, Echo, EKG etc): Report Reviewed by me
Impression/Plan
-
PCP: Sulma Niño MD
CDY: Ford Blanca MD (seen last in 2023)
IMPRESSION:
Chest pain with Abnormal EKG
Syncope
HTN
HLD
COPD
Adenocarcinoma LULI lung, XRT 2023
former smoker
Anxiety/Depression
PLAN:
Admit IVU post cath
serial troponin to peak
Echo later today
Check CVE, increase atorvastatin to 40mg
continue ASA, BB, ACEi
COPD continue pulmonary meds
continue PPI
continue to monitor on tele at least 48 hours
f/u DCA 2-4 weeks at d/c
[2024-11-13 09:57] LABS: ACT-LR - POC 184 Seconds (116-155)
[2024-11-13 10:07] LABS: ACT-LR - POC 265 Seconds (116-155)
--- NOTE | 2024-11-13 10:35 | ITS.CL.CATH ---
Director Sterile Processing - Catheterization
Cardiac Catheterization
Procedure Report:
LEFT HEART CATHETERIZATION
Date of Procedure: November 13, 2024
Referring: [facility] Emergency Department
PROCEDURES:
1. Left heart catheterization with coronary and single-plane left ventriculography
INDICATION: This is a 74-year-old female who had been followed for cardiovascular issues by Dr. Ford Blanca. She presented to [facility] for evaluation of a presyncopal episode and some chest tightness. Upon arrival to the ED she
continued to complain of 2/10 substernal chest pain. Her prehospital ECG was reportedly concerning for inferior ST elevation and a STEMI alert was activated.
ACCESS: Right radial artery, 6 Syriac sheath using ultrasound guidance
HEMODYNAMICS : (mmHg)
AO (s/d) : 139/61, 93
LV (s/d) : 138/13
LVEDP : 26
CORONARY FINDINGS
DOMINANCE: Right
LEFT MAIN: Short and unobstructed
LEFT ANTERIOR DESCENDING: The LAD arises normally from the left main and runs in the anterior interventricular groove. The LAD is rather small caliber vessel as it approaches the apex. Only minor irregularities are noted with no focal obstructive
high-grade stenosis.
CIRCUMFLEX: The circumflex is a medium caliber nondominant vessel supplying a small to medium caliber bifurcating OM1 with a 50% proximal stenosis, very tortuous small to medium caliber OM 2. The circumflex then continues in the AV groove where a
smooth 60-65% distal stenosis is noted before the vessel terminates in a posterolateral branch
RIGHT CORONARY ARTERY: Mild ostial narrowing with no pressure dampening and good reflux around a 6 Syriac diagnostic catheter. There is a 50% mid RCA stenosis. The PDA is small and tortuous
VENTRICULOGRAPHY: Left ventriculography is performed in an MCKEON projection. The digital single-plane left ventricular ejection fraction is estimated at 65%. Mild mitral regurgitation is noted
SEDATION: 28 minutes of procedural sedation was utilized. An independent medical advisor was present to assist with and help manage the patient's level of consciousness and physiologic status.
RADIATION SUMMARY: Fluoro Time (min): 3.5, Dose (mGy): 227, DAP (Gy.cm2) : 21.5
Closure Device: TR band
CONCLUSIONS
1. Moderate coronary disease in the distal circumflex with JAYME-3 flow and no obvious culprit stenosis resulting in patient's symptoms
2. Preserved LV systolic function
RECOMMENDATIONS
1. Trend serial troponin
2. Guideline directed medical therapy for lipid and blood pressure control
3. Check echocardiogram
4. Further management decisions based on the results of the studies above. Could consider percutaneous revascularization of the AV circumflex if felt to be clinically indicated, however, the stenosis appears more chronic in nature rather than acute
Copy to: Dr. Ford Blanca
--- NOTE | 2024-11-13 10:54 | PTCARENOTE ---
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 R radial band in place, hand pale and cool, O2 sat 94%, after hand positioned on pillow.
[2024-11-13 11:02] LABS: Troponin I < 0.012 ng/ml
[2024-11-13 11:12] LABS: ALT (SGPT) 27 U/L (0-35); AST (SGOT) 34 U/L (14-36); Albumin 3.7 g/dl (3.5-5.0); Alkaline Phosphatase 126 U/L (38-126); Blood Urea Nitrogen 26 mg/dl (7-17); Calcium 8.1 mg/dl (8.4-10.2); Carbon Dioxide 24 mmol/L (22-30); Chloride 108 mmol/L (98-107); Glucose 98 mg/dl (70-99); Potassium 5.4 mmol/L (3.5-5.1); Sodium 138 mmol/L (135-145); Total Protein 6.4 g/dl (6.3-8.2); eGFR > 60.00
[2024-11-13 11:48] LABS: Glycohemoglobin (HgbA1c) 6.0 % (4.0-5.6)
--- NOTE | 2024-11-13 15:59 | CM ---
spoke to pt in room, she is prev indep, lives alone in a 2 story home with 2 steps to enter. she has a cane to use if needed. plan is for dc to home when medicaly stable.
[2024-11-13 17:25] LABS: Troponin I < 0.012 ng/ml
[2024-11-13] MEDS: LOVENOX 40 MG SC (18:01)
[2024-11-13] MEDS: LIPITOR 40 MG PO (18:01)
[2024-11-13] MEDS: ZESTRIL 20 MG PO (18:01)
[2024-11-13] MEDS: NORVASC 2.5 MG PO (18:01)
[2024-11-13] MEDS: SPIRIVA RESPIMAT 2.5 MCG INH (19:41)
[2024-11-13] MEDS: SYMBICORT 80/4.5 MCG INHALER 2 PUFF INH (19:50)
--- NOTE | 2024-11-13 20:29 | PTCARENOTE ---
Assumed care of patient at change of shift, pt AAOx4. Tele monitor shows NSR, HR in the 60's. Denies any chest pain or SOB at this time. Right radial dressing intact, no hematoma present. Patient educated and aware of activity restrictions. Aware of
POC, call stallworth within reach.
[2024-11-13] MEDS: TOFRANIL 200 MG PO (21:02)
[2024-11-14 01:00] LABS: Troponin I 0.014 ng/ml
[2024-11-14 04:19] VITALS: BP 123/61
[2024-11-14 04:48] LABS: Hematocrit 35.4 % (37.0-47.0); Hemoglobin 11.8 g/dL (12.0-16.0); Mean Corp Hgb Conc. 33.3 g/dL (33.0-37.0); Mean Corpuscular Volume 88.5 fL (81.0-99.0); Platelet Count 246 10^3/uL (130-400); Red Cell Dist. Width 13.4 % (11.5-14.5)
[2024-11-14 05:09] LABS: Blood Urea Nitrogen 30 mg/dl (7-17); Calcium 9.0 mg/dl (8.4-10.2); Carbon Dioxide 22 mmol/L (22-30); Chloride 109 mmol/L (98-107); Estimated Creatinine Clearance 69 ml/min; Glucose 100 mg/dl (70-99); HDL Cholesterol 45 mg/dl; LDL Cholesterol, Calculated 25 mg/dl; Potassium 4.4 mmol/L (3.5-5.1); Sodium 138 mmol/L (135-145); Very Low Density Lipoprotein 30 mg/dl (0-30); eGFR > 60.00
[2024-11-14 07:32] VITALS: BP 144/72
[2024-11-14] MEDS: LOW STRENGTH ASPIRIN 81 MG PO (08:10)
[2024-11-14] MEDS: NORVASC 2.5 MG PO (08:10)
[2024-11-14] MEDS: PROTONIX 40 MG PO (08:10)
--- NOTE | 2024-11-14 08:10 | W.PN.CARDCBS ---
Addendum entered and electronically signed by Reta Boyle PA-C 11/16/24 16:29:
Dictation # [id number]
Addendum entered and electronically signed by Kelly Lovell MD 11/14/24 09:50:
I saw and examined the patient.
The Consumer Lender's note was reviewed and I agree with the note.
Comment:
Exam stable. Initial chest pain with abnormal EKG. Wrist stable postprocedure. Regular rate and rhythm. Telemetry independently reviewed by me. Labs independently reviewed by me. Cardiac catheterization reviewed.
[facility] 11/13/2024: Moderate coronary disease in the distal circumflex with JAYME-3 flow and no obvious culprit stenosis resulting in patient's symptoms. Echocardiogram reviewed from 11/13/2024 with normal LV function and trace aortic valve regurgitation.
Patient with history of fluctuating blood pressures which may be in part related to vagal reactions.
Plan:
Blood pressure was elevated during hospital stay and amlodipine was added to her regimen. Continue to follow given history of fluctuation
Aggressive outpatient risk factor modification given moderate coronary disease single-vessel
Aortic valve insufficiency should be followed by echocardiogram in 3 to 5 years
Patient reassured regarding chest discomfort which does not appear currently to be cardiac in etiology.
We will follow her up in the office
Greater than 30 minutes total discharge time in discussion with patient, coordinating care, independently reviewing telemetry, EKGs, left heart catheterization and echocardiogram. All questions answered. She may be discharged.
Original Note:
Today's Communication / Plan
-
Continue aspirin, lipitor
Continue amlodipine, lisinopril
Restart Toprol at lower dose 50mg daily
OK for discharge
Follow up arranged
Impression / Plan
-
PCP: Sulma Niño MD
Cardiology: Ford Blanca MD (seen last in 2023)
Impression:
Chest pain with Abnormal EKG
Syncope
HTN
HLD
COPD
Adenocarcinoma LULI lung, XRT 2023
former smoker
Anxiety/Depression
[facility] 11/13/2024: Moderate coronary disease in the distal circumflex with JAYME-3 flow and no obvious culprit stenosis resulting in patient's symptoms
Echo 11/13/2024: EF 61%, aortic sclerosis without stenosis, mild MR,
Plan:
-Presented with chest pain and found to have abnormal EKG, concerning for inferior STEMI.
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 No intervention performed.
-Troponin negative and flat. EKG stable this AM.
-Echo with preserved EF, no WMA.
-Suspect noncardiac etiology of chest tightness on arrival.
-Continue medical therapy with aspirin 81mg daily.
-LDL 25. Continue Lipitor.
-Notes history of somewhat labile BPs and what sounds like vagal episodes in the setting of abdominal symptoms.
-BPs somewhat elevated this admission. Will continue amlodipine and lisinopril and will restart Toprol at lower dose 50 mg daily.
-She will follow BPs at home and will call the office w/ concerns.
-Continue Pantoprazole.
-Follow up has been arranged. Likely OK for discharge later today if she remains stable.
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
Subjective
Date of Service: November 14, 2024
No recurrent chest pain.
Objective
Labs:
11/14/24 04:35
11/14/24 04:35
Labs
Hgb 11.8 g/dL (12.0-16.0) L 11/14/24 04:35
Hct 35.4 % (37.0-47.0) L 11/14/24 04:35
Plt Count 246 10^3/uL (130-400) 11/14/24 04:35
Sodium 138 mmol/L (135-145) 11/14/24 04:35
Potassium 4.4 mmol/L (3.5-5.1) 11/14/24 04:35
BUN 30 mg/dl (7-17) H 11/14/24 04:35
Creatinine 0.7 mg/dL (0.6-1.0) 11/14/24 04:35
Glucose 100 mg/dl (70-99) H 11/14/24 04:35
Troponins
11/13/24 11/13/24 11/14/24
09:35 16:39 00:11
Troponin I < 0.012 < 0.012 0.014
11/14/24
08:00
Troponin I Cancelled
Vital Signs and I&O:
Vital Signs
Temp Pulse Resp BP Pulse Ox
98.3 F 76 18 123/61 97
11/14/24 07:30 11/14/24 07:30 11/14/24 07:30 11/14/24 04:19 11/14/24 07:30
Vital Signs
Temp Pulse Resp BP Pulse Ox
98.3 F 76 18 123/61 97
11/14/24 07:30 11/14/24 07:30 11/14/24 07:30 11/14/24 04:19 11/14/24 07:30
Intake & Output
11/12/24 11/13/24 11/14/24 11/15/24
06:59 06:59 06:59 06:59
Intake Total 825 / 825
Balance 825 / 825
Physical Exam
Physical Exam
GEN: No distress, awake, alert, oriented x3
HEENT: supple, anicteric, mmm
LUNGS: CTA b/l, no wheezes/rales
CV: Reg, S1/S2, no murmur
EXT: No clubbing, cyanosis, or edema
NEURO: Gross non-focal
SKIN: Warm, dry, no rash. R radial site c/d/i
[2024-11-14] MEDS: SYMBICORT 80/4.5 MCG INHALER 2 PUFF INH (08:22)
[2024-11-14] MEDS: SPIRIVA RESPIMAT 2.5 MCG 2 PUFF INH (08:22)
--- NOTE | 2024-11-14 09:22 | W.DS.TRANS ---
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
-
Discharge Instructions:
Discharge Diagnosis/Procedures Chest pain, Cardiac cath
Diet Low Cholesterol
Driving Restrictions No driving for 24 hours
Instructions:
Stand-Alone Forms: DC Instructions- Cath/EP Lab
Changes to Home Medications: Yes
Discharge Medications:
DC Medications w/original date entered in [facility]
alprazolam 0.25 mg tablet 0.25 mg PO HS Mental Health/Anxiety 04/12/13
albuterol sulfate 90 mcg/actuation aerosol inhaler 2 puff inhalation R Q4HPRN PRN shortness of breath or wheeze ##1 04/14/13
aspirin 81 mg tablet,delayed release 81 mg PO HS Blood Clot Prevention/Tx 07/24/23
cholecalciferol (vitamin D3) 25 mcg (1,000 unit) tablet (Vitamin D3) 25 mcg PO HS Supplement 07/24/23
fluticasone fur. 100 mcg-umeclid 62.5 mcg-vilant 25 mcg inhalat.powder (Trelegy Ellipta) 1 inh inhalation R DAILY Lung/Breathing Issues 07/24/23
imipramine HCl 50 mg tablet 200 mg PO QHS Mental Health/Anxiety 07/24/23
lisinopril 20 mg tablet 20 mg PO HS Blood Pressure 07/24/23
atorvastatin 20 mg tablet 20 mg PO DAILY High Cholesterol 03/10/24
therapeutic multivitamin 1 tab PO DAILY Supplement 03/10/24
acetaminophen 500 mg capsule 1,000 mg PO HS 11/13/24
amlodipine 2.5 mg tablet 2.5 mg PO DAILY #30 tabs 11/14/24
metoprolol succinate 100 mg tablet,extended release 24 hr 50 mg (1/2 x 100 mg) PO HS Heart Disease/Condition #0 tabs 11/14/24
pantoprazole 40 mg tablet,delayed release 40 mg PO DAILY #30 tabs 11/14/24
Home Medication Changes
amlodipine is new
Metoprolol dose reduced
pantoprazole is new
Pending Results: No
--- NOTE | 2024-11-14 10:10 | PTCARENOTE ---
received patient this am sitting up in chair eating breakfast. monitor shows NSR, VSS. patient has bilat. hand [id number] since . right radial dsg. D/I, distal Pulses palpable. patient is hoping she will be discharged to home today.
[2024-11-14 11:15] VITALS: BP 119/97
--- NOTE | 2024-11-14 13:06 | PTCARENOTE ---
D/C instructions given to patient, verbalizes understanding. INT D/C'd, telemetry D/C'd, personal belongings packed and sent with patient. D/C to home via wc accompanied by staff.
== END 2024-11-14 13:09 | disposition home or self-care (01) | DRG 282 ==
LOC: IVU 10:20
PROVIDERS: Nurse Practitioner Adult Health; ADMITTING PHYSICIAN Internal Medicine Interventional Cardiology; EMERGENCY PHYSICIAN Emergency Medicine
PROC: 4A023N7 Measurement of Cardiac Sampling and Pressure, Left Heart, Percutaneous Approach (ICD-10-PCS; 2024-11-13)
PROC: B2151ZZ Fluoroscopy of Left Heart using Low Osmolar Contrast (ICD-10-PCS; 2024-11-13)
PROC: B2111ZZ Fluoroscopy of Multiple Coronary Arteries using Low Osmolar Contrast (ICD-10-PCS; 2024-11-13)
DX: I21.19 ST elevation (STEMI) myocardial infarction involving other coronary artery of inferior wall (principal); I95.9 Hypotension, unspecified; F32.A Depression, unspecified; I10 Essential (primary) hypertension; F17.200 Nicotine dependence, unspecified, uncomplicated; J44.9 Chronic obstructive pulmonary disease, unspecified; D64.9 Anemia, unspecified; E78.00 Pure hypercholesterolemia, unspecified; F41.9 Anxiety disorder, unspecified; K90.0 Celiac disease; Z60.2 Problems related to living alone; Z92.3 Personal history of irradiation; Z87.440 Personal history of urinary (tract) infections; Z85.118 Personal history of other malignant neoplasm of bronchus and lung; Z91.018 Allergy to other foods; Z79.51 Long term (current) use of inhaled steroids; Z79.82 Long term (current) use of aspirin
CPT/HCPCS: 80048; 80053; 80061; 83036; 84484; 85025; 85027; 85347; 93005; 93306; 93458; 94640; 99152; 99153; 99285; C1769; C1894; Q9967

== ENCOUNTER → 2025-02-05 12:40 | Outpatient (REF) | payer OTHER, SELFPAY | LOC: RAD 12:40 | PROVIDERS: ATTENDING PHYSICIAN Radiology Radiation Oncology; FAMILY PHYSICIAN Student in an Organized Health Care Education/Training Program | DX: C34.32 Malignant neoplasm of lower lobe, left bronchus or lung (principal) | CPT/HCPCS: 71250 ==

== ENCOUNTER → 2025-02-10 07:39 | Outpatient (REF) | payer OTHER, SELFPAY | LOC: WDC 07:39 | PROVIDERS: ATTENDING PHYSICIAN Student in an Organized Health Care Education/Training Program | DX: Z12.31 Encounter for screening mammogram for malignant neoplasm of breast (principal); Z13.820 Encounter for screening for osteoporosis; Z87.898 Personal history of other specified conditions; Z82.49 Family history of ischemic heart disease and other diseases of the circulatory system; M85.88 Other specified disorders of bone density and structure, other site | CPT/HCPCS: 77063; 77067; 77080 ==

== ENCOUNTER 2025-03-31 19:38 | Observation (INO) | payer OTHER, SELFPAY ==
[2025-03-31 14:14] VITALS: BP 97/52
[2025-03-31 14:20] VITALS: BP 97/52
[2025-03-31 14:26] VITALS: BMI 29.3
[2025-03-31 14:32] LABS: Hematocrit 34.1 % (37.0-47.0); Hemoglobin 11.0 g/dL (12.0-16.0); Mean Corp Hgb Conc. 32.3 g/dL (33.0-37.0); Mean Corpuscular Volume 85.7 fL (81.0-99.0); Nucleated Red Blood Cells % 0 %; Platelet Count 344 10^3/uL (130-400); Red Cell Dist. Width 14.3 % (11.5-14.5)
[2025-03-31 14:47] LABS: ALT (SGPT) 20 U/L (0-35); AST (SGOT) 23 U/L (14-36); Albumin 3.7 g/dl (3.5-5.0); Alkaline Phosphatase 130 U/L (38-126); Blood Urea Nitrogen 38 mg/dl (7-17); Calcium 8.6 mg/dl (8.4-10.2); Carbon Dioxide 23 mmol/L (22-30); Chloride 106 mmol/L (98-107); Estimated Creatinine Clearance 36 ml/min; Glucose 97 mg/dl (70-99); Potassium 5.3 mmol/L (3.5-5.1); Sodium 136 mmol/L (135-145); Total Protein 6.6 g/dl (6.3-8.2); eGFR 42.35
--- NOTE | 2025-03-31 15:20 | ED.GENMED ---
History of Present Illness
General
Chief Complaint: Weakness
Source: patient and family (Daughter who is at the bedside)
Exam Limitations: none
Time Seen by Provider: 03/31/25 15:15
Nursing documentation reviewed up to this point in time: agreed with
History of Present Illness
History of Present Illness:
The patient is a pleasant 75-year-old female who reports at least 1 week of generalized weakness and lightheadedness. Patient reports that she has noticed her blood pressure has been particularly low over the last week. Patient reports of recently
her blood pressures have been 70s over 40s. She has had multiple episodes of nearly passing out but not quite passing out. Additionally, patient reports occasional shortness of breath on exertion but denies chest pain. She denies fevers and
chills. She reports she has been eating and drinking as normal. Patient reports that yesterday she felt particularly lightheaded and symptoms improved while laying flat. Patient reports she currently takes 50 mg of metoprolol daily as well as 20
mg of lisinopril. Patient reports that she has been on this regimen for about 6 weeks. Additionally, patient reports mucousy soft stool since this morning. She reports she believes she sees some blood in it. She reports having a normal bowel
movement yesterday. She denies nausea, vomiting and abdominal pain. She denies recent antibiotic use. She denies sick contacts. Her daughter is at the bedside and reports that she is very worried about her mom's generalized weakness and
lightheadedness and believes that she should be admitted to the hospital. Patient lives alone.
Past History
Past History
ED Past Medical History: HTN and Psychiatric (Depression)
Social History
Tobacco: Smoker
Alcohol: Occasional
Drug: None
Personal: Single
Living: alone
Review of Systems
Review of Systems
Allergies reviewed?: Yes
Other source history: family
All Other Systems: ROS reviewed and negative except as documented in HPI and ROS
Constitutional: Reports fatigue
EENT: Reports no symptoms
Respiratory: Reports trouble breathing
Cardiac: Reports no symptoms
ABD/GI: Reports diarrhea
: Reports no symptoms
Musculoskeletal: Reports no symptoms
Skin: Reports no symptoms
Neurological: Reports no symptoms
Endocrine: Reports no symptoms
Hematologic/Lymphatic: Reports no symptoms
Psychiatric: Reports no symptoms
Phy Exam
Physical Exam
Physical Exam:
Physical Exam
General: no apparent distress, not acutely ill
Neck: No meningismus. Very dry mucous membrane
Heart: Bradycardic
Lungs: no acute respiratory distress. clear bilaterally
Abdomen: normal bowel sounds. not tender. no CVAT
Neuro: alert and oriented. no focal neurological deficits
Skin: no rash
Psychiatric: well kept. interactive and cooperative
Extremities: no edema. no calf tenderness. negative homans. good distal pulses
Course
Orders/Labs/Results
Orders:
Orders
03/31/25 14:06
Electrocardiogram (*1) Urgent
Reason for Study: Fatigue / Weakness
EKG- Treatment ONCE
CXR2 [CR Chest - 2 Views ] Urgent
Comment:
Reason For Exam: weakness
03/31/25 14:18
Complete Blood Count/With Diff Urgent
Comprehensive Metabolic Panel Urgent
03/31/25 14:42
C difficile Antigen & Toxins Urgent
JOSE Source: Feces/Stool
Specimen Description:
Date Specimen was Collected: 03/31/25
Time Specimen was Collected: 14:40
Stool Culture Urgent
JOSE Source: Feces/Stool
Specimen Description:
Date Specimen was Collected: 03/31/25
Time Specimen was Collected: 14:40
Stool For WBC Urgent
JOSE Source: Feces/Stool
Specimen Description:
Date Specimen was Collected: 03/31/25
Time Specimen was Collected: 14:40
03/31/25 15:59
COVID-19 Antigen Urgent
Source: Nasal Swab
Influenza A+B Rapid Molecular Urgent
JOSE Source: Nasal Swab
Specimen Description:
03/31/25 16:00
0.9% Sodium Chloride 1000 ml [Nss] 1,000 ml IV BOLUS
03/31/25 16:02
Add On- LAB Urgent
Tests Added?: stool for occult blood
03/31/25 16:34
Troponin I Urgent
03/31/25 16:39
Add On- LAB Urgent
Tests Added?: Stool Occult blood
Abnormal Lab Results
03/31/25
14:18
WBC 12.0 H 10^3/uL
(4.8-10.8)
RBC 3.98 L 10^6/uL
(4.20-5.40)
Hgb 11.0 L g/dL
(12.0-16.0)
Hct 34.1 L %
(37.0-47.0)
MCHC 32.3 L g/dL
(33.0-37.0)
Absolute Neuts (auto) 10.0 H 10^3/uL
(1.4-6.5)
Absolute Lymphs (auto) 0.9 L 10^3/uL
(1.2-3.4)
Absolute Monos (auto) 0.8 H 10^3/uL
(0.1-0.6)
Neutrophils % 83.8 H %
(42.2-75.2)
Lymphocytes % 7.4 L %
(20.5-51.1)
Potassium 5.3 H mmol/L
(3.5-5.1)
BUN 38 H mg/dl
(7-17)
Creatinine 1.3 H mg/dL
(0.6-1.0)
Alkaline Phosphatase 130 H U/L
(38-126)
03/31/25 14:18
12/24/25 14:18
Vital Signs
Initial and Last Documented VS:
Initial Vital Signs
Pulse Resp Pulse Ox
45 18 99
03/31/25 14:12 03/31/25 14:12 03/31/25 14:12
Last Documented Vital Signs
Temp Pulse Resp BP Pulse Ox
98.2 F 44 16 97/52 96
03/31/25 14:20 03/31/25 14:20 03/31/25 14:20 03/31/25 14:20 03/31/25 15:21
MDM/Problems Addressed
Differential Diagnosis Includes:
acute symptomatic bradycardia, acute symptomatic hypotension, acute coronary syndrome
MDM/Problems Addressed:
Patient presents with acute lightheadedness and generalized weakness as well as acute diarrhea
Chronic conditions affecting care:
Acute coronary syndrome
Acute Exacerbation and/or Progression of Chronic Illness:
Patient may have acute exacerbation of coronary artery disease causing exertional shortness of breath and fatigue
Acute Exacerbation and/or Progression of Chronic Illness: CAD
*Radiology
Radiology exam reviewed: preliminary read by ED provider (Chest x-ray reviewed by me. No acute disease) and radiology read reviewed
*Pulse Oximetry
SaO2: 96
Oxygen Mode of Delivery: Room air
Patient hypoxic: no
*EKG
Interpreted by ED Provider?: Yes
Interpretation: abnormal
Comparison EKG: changes noted
Rate: bradycardiac
Rhythm: sinus
Hinckley: normal axis
Interval: normal interval
QRS Pattern: wide non-specific
Ischemia: non-specific ST changes
*Linoleum Tile Floor Layer Interpretation
Rate: bradycardiac
Interpretation: abnormal
Rhythm: sinus
*Critical Care Note
Total Time (30-74mins, 75-104mins- exclusive of procedures): Not Applicable
Data Reviewed
Review of Other/Old Records Reveals: Discharge Summary (Discharge summary reviewed from 2023 when patient was admitted for acute coronary syndrome)
Source: patient and family
Patient Management
Social determinants of health affecting care: Living situation and Strong social support
Discussion with other providers: Hospitalist
ED Attending Note
-
Portions of this chart may have been created with voice recognition software.� Occasional wrong word or��sound alike� substitutions may have occurred due to the inherent limitations of voice recognition software.
Discharge Plan
Departure
Patient Disposition: Admit
Date of Disposition: 03/31/25
Time of Disposition: 17:50
Admit to: Telemetry
Presentation/result/management discussed w/ accepting MD/DO: Hospitalist
Patient with high blood pressure during this ER visit?: No
Condition: Good
Covid-19: Negative COVID-19
Discharge Problem:
Symptomatic hypotension
Prescriptions:
No Action
alprazolam 0.25 MG tablet
0.25 mg PO HS
albuterol sulfate 1 PUFF HFA aerosol inhaler
2 puff inhalation R Q4HPRN PRN (Reason: shortness of breath or wheeze) Qty: 1 0RF
Trelegy Ellipta 100-62.5-25 mcg Blister With Device
1 inh INHALATION R DAILY
lisinopril 20 mg Tablet
20 mg PO HS
aspirin 81 mg Tablet,Delayed Release (Dr/Ec)
81 mg PO HS
cholecalciferol (vitamin D3) [Vitamin D3] 25 mcg (1,000 unit) Tablet
25 mcg PO HS
imipramine HCl 50 mg Tablet
200 mg PO QHS
atorvastatin 20 mg Tablet
20 mg PO DAILY
therapeutic multivitamin Tablet
1 tab PO DAILY
acetaminophen 500 mg Capsule
1,000 mg PO HS
amlodipine 2.5 mg Tablet
2.5 mg PO DAILY Qty: 30 11RF
pantoprazole 40 mg Tablet,Delayed Release (Dr/Ec)
40 mg PO DAILY Qty: 30 11RF
metoprolol succinate 100 mg Tablet Extended Release 24 Hr
50 mg PO HS Qty: 0 0RF
Referrals:
Sulma Niño MD [Family Provider, Family Practice]
Interventions
Interventions:
*General Assessment Last Done: 03/31/25 14:20
*Neglect/Abuse Screening Last Done: 03/31/25 14:20
*ED COVID-19 Vaccine History Last Done: 03/31/25 14:20
*ED Influenza Vaccine History Last Done: 03/31/25 14:20
[facility] Fall Risk Assessment Tool Last Done: 03/31/25 14:20
*Risk Screen - Suicide (C-SSRS) Last Done: 03/31/25 14:20
ED- Cardiac Assessment Last Done: 03/31/25 14:20
ED- Neurological Assessment Last Done: 03/31/25 14:20
ED- Pulmonary Assessment Last Done: 03/31/25 14:20
Discharge Date and Time
Print Language: STATELESS
[2025-03-31] MEDS: NSS 1000 IV ×2 (16:07→19:29)
[2025-03-31 16:30] LABS: COVID-19 Antigen Negative (Negative)
[2025-03-31 17:04] LABS: Troponin I < 0.012 ng/ml
--- NOTE | 2025-03-31 18:44 | HPS.HSE ---
Family Physician
-
Family Physician: Sulma Niño MD
Chief Complaint
-
Weakness and Dizzy
History of Present Illness
Patient is a 75 y/o female past medical history of hypertension, lung cancer, COPD and anxiety who presents with episodes of weakness/dizziness for the past week. She reports suddenly gets weak with associated dizziness and sometimes shortness of
breath. She reports symptoms seem to improve with lying down. Patient reports her PCP has been tapering down in her blood pressure medications due to low blood pressures, mostly recently her amlodipine was stopped about 3-4 weeks ago. Patient
denies any chest pain. Patient reports she has been eating and drinking as usual. She reports two episodes of diarrhea earlier today but states this new and her other symptoms were present prior. She denies any nausea or vomiting.
Medical History
Past Medical History
Past Medical History: Reports Other
Additional Past Medical History:
Essential Hypertension
Hyperlipidemia
Lung Cancer (LULI Adenocarcinoma) s/p XRT
COPD
Anxiety / Depression
Celiac Disease
Chronic Anemia
Past Surgical History: Reports Other
Additional Past Surgical History:
T&A
Left TKA
Bronch / Biopsy
Social History
Tobacco: Smoker (Quit smoking 10 years ago. > 40 pack years total use.)
Alcohol: None
Drug: None
Family History
Family History: Not pertinent
Allergies / Home Medications
Allergies reflects when Allergies were last updated in [facility].
Home Medications with original date entered in [facility]
Allergy/Medication List:
Allergies
Allergy/AdvReac Type Severity Reaction Status Date / Time
gluten Allergy Nausea Verified 03/31/25 14:23
meperidine HCl (From Demerol) Allergy Anaphylaxis Verified 03/31/25 14:23
nut - unspecified Allergy Anaphylaxis Verified 03/31/25 14:23
prochlorperazine edisylate Allergy Anaphylaxis Verified 03/31/25 14:23
(From Compazine)
prochlorperazine maleate Allergy Anaphylaxis Verified 03/31/25 14:23
(From Compazine)
Home Medications
alprazolam 0.25 mg tablet 0.25 mg PO DAILYPRN PRN anxiety 04/12/13
albuterol sulfate 90 mcg/actuation aerosol inhaler 2 puff inhalation R Q4HPRN PRN shortness of breath or wheeze ##1 04/14/13
aspirin 81 mg tablet,delayed release 81 mg PO HS Blood Clot Prevention/Tx 07/24/23
cholecalciferol (vitamin D3) 25 mcg (1,000 unit) tablet (Vitamin D3) 25 mcg PO HS Supplement 07/24/23
fluticasone fur. 100 mcg-umeclid 62.5 mcg-vilant 25 mcg inhalat.powder (Trelegy Ellipta) 1 inh inhalation R DAILY Lung/Breathing Issues 07/24/23
imipramine HCl 50 mg tablet 200 mg PO QHS Mental Health/Anxiety 07/24/23
lisinopril 20 mg tablet 20 mg PO HS Blood Pressure 07/24/23
atorvastatin 20 mg tablet 20 mg PO DAILY High Cholesterol 03/10/24
therapeutic multivitamin 1 tab PO DAILY Supplement 03/10/24
metoprolol succinate 100 mg tablet,extended release 24 hr 50 mg (1/2 x 100 mg) PO HS Heart Disease/Condition #0 tabs 11/14/24
pantoprazole 40 mg tablet,delayed release 40 mg PO DAILY #30 tabs 11/14/24
Review of Systems
-
A 12 point ROS was completed and negative except as noted: Yes
Constitutional: Denies Fever or Chills
Respiratory: Denies Cough
Cardiac: Denies Chest Pain
Physical Exam
Vital Signs
Vital Signs
Temp Pulse Resp BP Pulse Ox
98.2 F 44 16 97/52 96
03/31/25 14:20 03/31/25 14:20 03/31/25 14:20 03/31/25 14:20 03/31/25 15:21
Physical Exam
General: Comfortable and Conversant
HEENT: Anicteric and Other (Lips and Tongue are notably dry)
Respiratory: Clear and Non Labored Respirations
Cardiac: S1/S2 and Regular Rhythm
GI: Soft and Non Tender
Rectal: Deferred by Provider
Musculoskeletal: No Clubbing, No Cyanosis and No Edema
Skin: Warm and Dry
Neuro: Awake, Alert, Oriented and Nonfocal/grossly intact
Psych: Calm
Laboratory Results
-
03/31/25 14:18
03/31/25 14:18
Laboratory Results
Total Bilirubin 0.2 mg/dl (0.2-1.3) 03/31/25 14:18
AST 23 U/L (14-36) 03/31/25 14:18
ALT 20 U/L (0-35) 03/31/25 14:18
Alkaline Phosphatase 130 U/L (38-126) H 03/31/25 14:18
Troponin I < 0.012 ng/ml 03/31/25 16:34
Chest X-Ray:
Chronic parenchymal scarring. No evidence of pneumonia or congestive heart failure.
Data Reviewed
-
Lab Data: Labs Reviewed by me
Impression/Plan
-
Acute Renal Insufficiency / Hyperkalemia, likely related to volume to hypotension and DENIS
-Continue IVFs
-Hold lisinopril
-Recheck labs in AM
Hypotension
-BP improved with fluids
-Check orthostatic VS
-Hold lisinopril
-Decrease metoprolol 25mg HS with hold parameters
-Check TSH
COPD, no acute exacerbation
-Continue Trelegy
Hyperlipidemia
-Continue atorvastatin
Anxiety / Depression
-Continue imipramine
Chronic Anemia
-Hgb Stable
Hx Lung CA s/p XRT
DVT proph: SCDs
Code Status: Full Code
[2025-03-31 19:02] VITALS: BP 132/79
--- NOTE | 2025-03-31 19:14 | W.PN.UPDATE ---
Update Note
Progress Note Update
This note serves as an addendum to the H&P by transplant rn LASHAUN�
Morenita DIETERICK
HPI
73F Lives alone PMH significant for hypertension, COPD and lung cancer
Seen at ER :
- 1 week of generalized weakness and lightheadedness
- blood pressure has been particularly low over the last week.
- have been 70s over 40s.
- associated with multiple episodes of nearly passing out but not quite passing out.-
- denies chest pain.
- denies fevers and chills.
- has been eating and drinking as normal.
- Currently takes 50 mg of metoprolol daily as well as 20 mg of lisinopril. - last dose es were last night
Relevant VS
03/31/25
14:12 03/31/25
14:14 03/31/25
14:15
Pulse 45 45
Resp Rate 18
Blood pressure 97/52
SaO2 99
03/31/25
19:02
Pulse 76
Resp Rate
Blood pressure 132/79
SaO2
PE
Gen: NAD
HEENT: symmetri face , nl speech
Neck: supple
Lungs: NAD
Cor: RRR S1 S2
Abdomen:�benign
[employer]: AAO3
MS: no edema
Psych: interactive and cooperative
Labs
03/31/25 03/31/25
14:18 16:34
WBC 12.0 H
Hgb 11.0 L
Plt Count 344
Potassium 5.3 H
BUN 38 H
Creatinine 1.3 H
eGFR 42.35
Troponin I < 0.012
TSH (Reflex) Pending
11/14/24
04:35
Potassium 4.4
BUN 30 H
Creatinine 0.7
eGFR > 60.00
EKG
SINUS BRADYCARDIA WITH PREMATURE SUPRAVENTRICULAR COMPLEXES
LOW VOLTAGE QRS
JUNCTIONAL ST DEPRESSION, PROBABLY NORMAL
BORDERLINE ECG
WHEN COMPARED WITH ECG OF 14-Nov-2024 04:21,
PREMATURE SUPRAVENTRICULAR COMPLEXES ARE NOW PRESENT
CO INTERVAL HAS DECREASED
RIGHT BUNDLE BRANCH BLOCK IS NO LONGER PRESENT
11/13/24 TTE
1. Normal left ventricular size and function.
2. Left ventricular ejection fraction is normal with an ejection fraction of 61 % by Banegas's biplane method of discs.
3. Trace aortic regurgitation.
4. Aortic valve sclerosis without stenosis.
5. Mild mitral valve regurgitation.
ASSESSMENT & PLAN
Pending Rx reconciliation
Symptomatic hypotension suspect due to new anti HTN meds ( Lisinopril, Metoprolol )
Complicated with VALENTINO
BB induced Sinus Scott cardia
HX Benign Hypertension
- s/p 2 L NS at ER
- Hold Lisinopril and Meprolone
COPD without Acute Falre
Lung Cancer s/p XRT
- No wheezing or SOB.
- Completed treatment for very early stage lung cancer (XRT x 5 sessions).
- Continue usual inhaler regimen.
- Nebs PRN.
Anxiety / Depression
- Stable. Continue home medications.
DVT Px: SCD
Code: Full code
OBS TLM
[2025-03-31 21:10] VITALS: BP 164/86; BMI 29.7
[2025-03-31 21:14] VITALS: BP 101/65; BP 131/78; BP 164/86; PULSE 81; PULSE 84; PULSE 89
[2025-03-31] MEDS: TOPROL XL 25 MG PO (22:01)
[2025-03-31] MEDS: TOFRANIL 200 MG PO (22:02)
[2025-03-31] MEDS: ASPIR LOW (ENTERIC COATED) 81 MG PO (22:07)
[2025-03-31] MEDS: XANAX 0.25 MG PO (23:13)
[2025-03-31] MEDS: TYLENOL 650 MG PO (23:13)
[2025-03-31 23:21] VITALS: BP 123/71
[2025-04-01 03:06] VITALS: BP 98/69
--- NOTE | 2025-04-01 07:48 | PTCARENOTE ---
Patient c.diff negative and no outstanding norovirus stool - changed to standard precautions as per protocol.
[2025-04-01 08:02] LABS: Hematocrit 35.1 % (37.0-47.0); Hemoglobin 11.4 g/dL (12.0-16.0); Mean Corp Hgb Conc. 32.5 g/dL (33.0-37.0); Mean Corpuscular Volume 85.6 fL (81.0-99.0); Platelet Count 310 10^3/uL (130-400); Red Cell Dist. Width 14.2 % (11.5-14.5)
[2025-04-01] MEDS: PROTONIX 40 MG PO (08:08)
[2025-04-01] MEDS: LIPITOR 20 MG PO (08:08)
[2025-04-01 08:14] VITALS: BP 131/72
[2025-04-01] MEDS: SYMBICORT 80/4.5 MCG INHALER 2 PUFF INH (08:17)
[2025-04-01] MEDS: SPIRIVA RESPIMAT 2.5 MCG 2 PUFF INH (08:18)
[2025-04-01 08:19] LABS: Blood Urea Nitrogen 33 mg/dl (7-17); Calcium 8.5 mg/dl (8.4-10.2); Carbon Dioxide 22 mmol/L (22-30); Chloride 108 mmol/L (98-107); Estimated Creatinine Clearance 43 ml/min; Glucose 97 mg/dl (70-99); Potassium 4.3 mmol/L (3.5-5.1); Sodium 137 mmol/L (135-145); eGFR 51.75
--- NOTE | 2025-04-01 08:19 | W.PN.HOSP.TC ---
Addendum entered and electronically signed by Fran Yang MD 04/01/25 14:57:
Total time spent on d/c = 34 min. This included today's physical exam, progress note, review of laboratory and diagnostic data, preparation of discharge documents and prescriptions, and discussions about the pt's hospital course and discharge plan
with the patient and other medical liaison involved in the patient's care.
Original Note:
Today's Communication/Plan
-
see plan
Assessment / Plan
Assessment / Plan
Gen: NAD, AAOx3.
Eyes: EOMI, PERRLA, no scleral icterus.
Neck: supple.
CV: RRR, +S1/S2, no m/r/g.
Resp: CTAB, no rales, wheezes, or rhonchi.
Abd: +BS, soft, NT, ND
Skin: No rashes.
Neuro: CN 2-12 intact, non-focal.
Psych: Normal mood and affect.
VALENTINO, hyperkalemia, and hypotension due to volume depletion and ACEi:
-TSH normal
-holding ACEi, BB decreased
-BP and Cr have improved s/p IVFs
-check orthostatic VS today (was orthostatic on admission)
-cont IVFs
Other problems:
COPD: not in acute exacerbation, cont Trelegy
HLD: cont statin
Anxiety/Depression: cont imipramine
Chronic Anemia: Hb stable
Hx Lung CA s/p XRT
Obesity due to excess calories
FULL/SCDs
Anticipated Discharge: Within 24 hours
Subjective/Interval History
-
Date of Service: April 01, 2025
States she is still lightheaded with standing but this has improved since admission. Denies CP/SOB/abd pain. RN states pt had a streak of blood with BM.
Objective Data
-
Labs:
Laboratory Results
04/01/25
07:47
WBC 7.8
Hgb 11.4 L
Hct 35.1 L
Plt Count 310
Sodium 137
Potassium 4.3
Chloride 108 H
Carbon Dioxide 22
BUN 33 H
Creatinine 1.1 H
Glucose 97
Calcium 8.5
Vital Signs:
Vital Signs
Temp Pulse Resp BP Pulse Ox
97.6 F 75 16 131/72 100
04/01/25 08:14 04/01/25 08:14 04/01/25 08:14 04/01/25 08:14 04/01/25 08:14
I&O
03/31/25 04/01/25 04/02/25
06:59 06:59 06:59
Intake Total 1480 / 1480
Balance 1480 / 1480
[2025-04-01] MEDS: NSS 1000 IV (10:06)
[2025-04-01 11:35] VITALS: BP 148/78
[2025-04-01 14:45] VITALS: BP 127/74; BP 138/75; BP 141/73; PULSE 83; PULSE 86
--- NOTE | 2025-04-01 14:57 | W.DCSUMMARY ---
Discharge Summary
Discharge Data
Date of Admission: 03/31/25
Date of Discharge: 04/01/25
-
Pending Results: No
Hospital Course
Primary diagnoses:
Acute kidney injury
Orthostatic hypotension
Secondary diagnoses:
Chronic obstructive pulmonary disease
Hyperlipidemia
Anxiety
Depression
Chronic anemia
History of lung cancer s/p radiation therapy
Obesity due to excess calories
Consults:
None
Imaging:
CXR: Chronic parenchymal scarring. No evidence of pneumonia or congestive heart failure.
Hospital course: 75-year-old female who presented yesterday with chief complaints of weakness and dizziness as outlined in the H&P done on admission. The patient was found to be in acute kidney injury and hypotensive. Her orthostatic vital signs
were positive. Her DENIS inhibitor was held and her beta-sanjuana was decreased. She was given IV fluids. Her symptoms improved and orthostasis resolved. She was discharged in medically stable condition.
Discharge Plan
-
Patient Disposition: Home (Routine Discharge)
Discharge Diagnosis/Procedures: Acute kidney injury, orthostatic hypotension
Condition: Good
Diet: Other diet
Additional Diets: Heart healthy
Activity: As tolerated
Driving Restrictions: As prior to admission
Blood Work: BMP in 1 week, prescription from PCP
Referrals:
Sulma Niño MD [Family Provider, [facility]] - in less than 1 week
Prescriptions:
New
metoprolol succinate 25 mg Tablet Extended Release 24 Hr
50 mg PO HS Qty: 60 0RF
Continued
alprazolam 0.25 MG tablet
0.25 mg PO DAILYPRN PRN (Reason: anxiety)
albuterol sulfate 1 PUFF HFA aerosol inhaler
2 puff inhalation R Q4HPRN PRN (Reason: shortness of breath or wheeze) Qty: 1 0RF
Trelegy Ellipta 100-62.5-25 mcg Blister With Device
1 inh INHALATION R DAILY
aspirin 81 mg Tablet,Delayed Release (Dr/Ec)
81 mg PO HS
cholecalciferol (vitamin D3) [Vitamin D3] 25 mcg (1,000 unit) Tablet
25 mcg PO HS
imipramine HCl 50 mg Tablet
200 mg PO QHS
atorvastatin 20 mg Tablet
20 mg PO DAILY
therapeutic multivitamin Tablet
1 tab PO DAILY
pantoprazole 40 mg Tablet,Delayed Release (Dr/Ec)
40 mg PO DAILY Qty: 30 11RF
Discontinued
lisinopril 20 mg Tablet
20 mg PO HS
metoprolol succinate 100 mg Tablet Extended Release 24 Hr
50 mg PO HS Qty: 0 0RF
Discharge Orders:
Discharge Patient (As Directed); Ordered 04/01/25
Ordered By: Fran Yang
Discharge Date and Time
Print Language: KYRGYZ
--- NOTE | 2025-04-01 15:30 | CM ---
Patient seen at bedside
IA completed
REBOLLAR form explained & signed
discharge today
Patient lives alone in a multi-story home, 0 [address], flight to bedroom/bathroom
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
DME: [facility] is[facility] kemp
Denies VN/REHAB
pcp: Sulma Niño MD
pharmacy: [facility]
PLAN: Home, no needs
friend to transport
[2025-04-01 15:36] VITALS: BP 127/74
== END 2025-04-01 17:05 | disposition home or self-care (01) ==
LOC: 2 NORTH 19:38
PROVIDERS: Emergency Medicine; Physician Assistant Medical; ADMITTING PHYSICIAN Internal Medicine; ATTENDING PHYSICIAN Internal Medicine; EMERGENCY PHYSICIAN Emergency Medicine; FAMILY PHYSICIAN Student in an Organized Health Care Education/Training Program
DX: N17.9 Acute kidney failure, unspecified (principal); I95.9 Hypotension, unspecified; I95.1 Orthostatic hypotension; J44.9 Chronic obstructive pulmonary disease, unspecified; E78.5 Hyperlipidemia, unspecified; F41.9 Anxiety disorder, unspecified; F32.A Depression, unspecified; D64.9 Anemia, unspecified; Z92.3 Personal history of irradiation; Z85.118 Personal history of other malignant neoplasm of bronchus and lung; E66.09 Other obesity due to excess calories; Z68.29 Body mass index [BMI] 29.0-29.9, adult; I10 Essential (primary) hypertension; K90.0 Celiac disease; Z96.652 Presence of left artificial knee joint; Z88.8 Allergy status to other drugs, medicaments and biological substances; Z79.899 Other long term (current) drug therapy; Z79.82 Long term (current) use of aspirin; E86.9 Volume depletion, unspecified; E87.5 Hyperkalemia; F17.200 Nicotine dependence, unspecified, uncomplicated; Z88.5 Allergy status to narcotic agent; Z91.018 Allergy to other foods; Z11.52 Encounter for screening for COVID-19
CPT/HCPCS: 71046; 80048; 80053; 84443; 84484; 85025; 85027; 87045; 87046; 87324; 87427; 87449; 87502; 87811; 89055; 93005; 94640; 96360; 99285; G0378